=== PATIENT | female | born 1950 | race Caucasian/White ===

== ENCOUNTER → 2019-02-18 15:47 | Outpatient (CLI) | payer MEDICARE, OTHER, SELFPAY ==
--- NOTE | 2019-02-18 | DI.CT.S_ITS ---
PROCEDURE: CT UE LT WO CON INDICATIONS: PAIN IN LEFT SHOULDER TECHNIQUE: Noncontrast 1-1.5 mm thick sections acquired from the acromioclavicular joint to the inferior scapula, with coronal and sagittal reformatting. COMPARISON: None. FINDINGS: Image quality: Excellent. Bones: There is severe degenerative change at the glenohumeral joint where extensive subchondral cyst formation is resident and there is [id number] articulation across virtually the entirety of the articular surface. Prominent osteophytic spurring and bone thinning is present as a result. In contrast there is a mild to moderate degree of degenerative osteoarthritis at the acromioclavicular joint, but there is inferior tilt of the lateral acromion and the interspace beneath the acromium is thinned to the degree that chronic supraspinatus rotator cuff tear likely is present. Soft tissues: No joint effusion or intra-articular loose body is seen. Osteophytic spurring from the glenoid margins impinge on adjacent soft tissues along the undersurface of the glenoid rim. IMPRESSION: Very severe glenohumeral joint osteoarthritis, with extensive subchondral cyst formation, thinning of the glenoid from chronic degenerative change and [id number] articulation. The a.c. joint and contrast is only mildly degenerated. No acute trauma is found. Suspect full-thickness retracted supraspinatus rotator cuff tear given the relative thinning of the interspace between the upper margin of the humeral head and the undersurface of the acromion. Dictated by: Say Walsh M.D. on 02/18/2019 at 16:52 Approved by: Say Walsh M.D. on 02/18/2019 at 16:55
--- NOTE | 2019-02-18 | DI.MRI.S_ITS ---
PROCEDURE: MR SHOULDER LT WO CON INDICATIONS: PAIN IN LEFT SHOULDER TECHNIQUE: Noncontrast oblique coronal T2 fast spin echo with fat saturation, oblique sagittal T1 spin echo and T2 fast spin echo with fat saturation, axial T1 spin echo and T2 fast spin echo with fat saturation through the shoulder. COMPARISON: [facility], CT, CT UE LT WO CON, 02/18/2019, 16:25. FINDINGS: Image quality: Susceptibility artifact from prior shoulder surgery are seen.. Rotator cuff: There is tendinosis and low to moderate grade articular surface partial thickness tear involving distal supraspinatus and infraspinatus extending to musculotendinous junction. Tendinosis and moderate grade intrasubstance partial-thickness tear involving subscapularis is seen. No gross full-thickness rotator cuff tendon rupture. Sagittal images demonstrate moderate to severe subscapularis muscle atrophy and mild to moderate supraspinatus muscle atrophy. Bones and bursae: Severe glenohumeral joint osteoarthritis is seen with complete loss of joint space, extensive subchondral cyst formation and edema, and prominent marginal osteophyte formation. Mild acromioclavicular joint osteoarthritic changes are seen. No fracture or dislocation. No significant joint effusion. Capsule and soft tissues: In the absence of intra-articular contrast, there is global signal abnormality throughout labrum suggestive of extensive labral tear. The glenohumeral ligaments appear intact. Proximal intra-articular portion of long head biceps tendinosis is seen. The rotator interval appears normal, without fibrosis. The coracohumeral ligament is normal in thickness. IMPRESSION: 1. Prior surgery involving anterior aspect of shoulder with postsurgical changes. Tendinosis and moderate intrasubstance partial thickness involving distal subscapularis. Moderate to severe subscapularis muscle atrophy. 2. Tendinosis and low to moderate grade articular surface partial thickness tear involving distal supraspinatus and infraspinatus. Mild supraspinatus muscle atrophy. 3. Severe glenohumeral joint osteoarthritis and suggestion of diffuse left shoulder labral tear. Mild acromioclavicular joint osteoarthritis. 4. Tendinosis involving proximal intra-articular portion of long head of biceps. Dictated by: Oscar Woodruff M.D. on 02/19/2019 at 11:28 Approved by: Oscar Woodruff M.D. on 02/19/2019 at 11:45
== END ==
PROVIDERS: PCP Nurse Practitioner; Visit Provider Orthopaedic Surgery
DX: M25.512 Pain in left shoulder (principal); M19.012 Primary osteoarthritis, left shoulder; M62.512 Muscle wasting and atrophy, not elsewhere classified, left shoulder; M75.112 Incomplete rotator cuff tear or rupture of left shoulder, not specified as traumatic; M67.912 Unspecified disorder of synovium and tendon, left shoulder
CPT/HCPCS: 73200; 73221

== ENCOUNTER 2019-05-02 06:18 | Inpatient (IN) | payer MEDICARE, OTHER, SELFPAY ==
[2019-04-18 08:55] VITALS: BMI 23.7
[2019-05-02] VITALS (16 sets, daily range): BP systolic 97–142; BP diastolic 41–84; PULSE 61–76; RESP 11–18; TEMP 36.2–37.2; O2SAT 94–100; BMI 23.7; BMI 24.9
--- NOTE | 2019-05-02 06:00 | DI.RAD.S_ITS ---
PROCEDURE: XR SHOULDER LT MIN 2V INDICATIONS: post op TSA TECHNIQUE: 2 views of the shoulder were acquired. COMPARISON: None. FINDINGS: Bones: No fractures or dislocations. No suspicious bony lesions. Visualized ribs appear intact. Normal alignment is established immediately after left total shoulder arthroplasty. Soft tissues: No suspicious soft tissue calcifications. IMPRESSION: Normal alignment after shoulder arthroplasty on the left. Dictated by: Say Walsh M.D. on 05/02/2019 at 11:21 Approved by: Say Walsh M.D. on 05/02/2019 at 11:22
[2019-05-02] MEDS: ACETAMINOPHEN 325 MG TABLET 975 MG PO (06:56)
[2019-05-02] MEDS: PREGABALIN 75 MG CAPSULE PO (06:56)
[2019-05-02] MEDS: CELECOXIB 200 MG CAPSULE PO (06:56)
[2019-05-02] MEDS: LACTATED RINGERS 1,000 ML 42 ML IV (06:59)
[2019-05-02] MEDS: VANCOMYCIN 1,000 MG/200 ML PIGGYBACK 200 MG IV ×2 (07:00→19:13)
[2019-05-02] MEDS: MIDAZOLAM 2 MG/2 ML VIAL IV (07:39)
--- NOTE | 2019-05-02 07:45 | PM.PREOP ---
Pre-operative Note Interval Note History & Physical reviewed/Exam performed by Physician: Yes Changes to H&P: No
[2019-05-02] MEDS: GENTAMICIN 200 MG in SODIUM CHLORIDE 0.9% 100 ML 105 ML IV (08:01)
--- NOTE | 2019-05-02 08:08 | SUR.PREOP ---
Block start time [0739] . Monitoring initiated and maintained throughout procedure. Oxygen and medications given per anesthesiologist instructions. Patient remained stable throughout procedure, no adverse reactions noted. Block end time [0751].
--- NOTE | 2019-05-02 08:41 | P.PCN_ITS ---
Procedures Date/Time Date of procedure: 05/02/19 Time of procedure: 07:41 Nerve Block Time out performed: Yes Local anesthetic used: other (10mL 0.5opivacaine, 5mL 2* idocaine) Location of anesthetic used: interscalene Amount of anesthesia used (mL): 20 Nerve blocks: brachial plexus (interscalene) Procedure successful: Yes Patient tolerated procedure: well Complications: none Additional comments: LEFT Brachial plexus nerve block for post operative pain management. Risks and benefits discussed, including bleeding, infection, intravascular injection, nerve damage, block failure. Standard ASA monitors, NC O2. Pt supine. Chloroprep site preparation, sterile technique. Brachial plexus identified with US guidance, traced from supraclavicular to interscalene. 1mL 2% lidocaine skin wheal. 22g x 50mm Pajunk advanced with in-plane US guidance to brachial plexus. Negative aspiration. LA injected with intermittent negative aspiration. Good LA spread noted on US. No pain, no paraesthesia. Pt tolerated procedure well. Vital signs stable.
[2019-05-02] MEDS: LIDOCAINE 1% W/EPI INJ 20 ML INJ (08:48)
--- NOTE | 2019-05-02 08:50 | SUR.OPER ---
Beach chair with Kurtis/Haylie shoulder positioner. Lower body on padded OR bed. Head in foam padded head cradle, secured with straps. Non-operative arm secured <90 degrees abduction. Pillow under knees. Safety belt at thigh. Cloth tape over blanket over lower legs.
--- NOTE | 2019-05-02 10:11 | PM.OP.1 ---
Operative Date/Time/Diagnoses Date of procedure: 05/02/19 Time of procedure: 08:00 Pre-op diagnosis: Left end-stage glenohumeral joint arthritis Post-op diagnosis: same Procedure & Clinicians Procedure: Left total shoulder arthroplasty Same procedure as scheduled: Yes Indications: End-stage arthritic changes to the left shoulder with flattening of the humeral head and significant osteophyte formation around the glenoid as well as humeral head and neck. Surgeon: Rafael Dietrich Jewel Cupping Machine Operator: Rody Barahona Anesthesia Type: General and Peripheral nerve block Operative Notes Findings: Significant arthritic changes to the glenohumeral joint with flattening of the humeral head. Patient had large osteophytes coming off the humeral head and neck both anterior inferiorly and posteriorly. No sign of any rotator cuff tears. Some thinning of the supraspinatus but still an intact supraspinatus infraspinatus as well as subscapularis. Patient had large osteophytes involving the inferior aspect of the glenoid with a very large loose body at the glenoid neck. Significant osteophytes also to the anterior aspect of the glenoid. Closure Type: primary Specimen(s): none sent Applied: drain(s) and implant(s) Estimated Blood Loss (mL): 50 Blood products transfused: none Procedure in detail: On date of service, Patient was met in the holding area. The operative site was signed and witnessed by the OR staff. The surgeries once again discussed with the patient and any remaining questions they had were answered fully. Patient was taken back to the operating theater and placed on the operating table in a supine position. Great care was taken to ensure that all bony prominences were properly padded. Patient was then placed into the beach chair position. The head and neck were properly positioned and secured. A timeout was performed verifying patient's name, procedure, and the operative site. The upper extremity was then prepped and draped in the normal sterile fashion. Previously, the bony anatomy and incision were marked out as well as injected with Marcaine with epinephrine. A deltopectoral approach was performed. 10 blade was used to incise the skin and fascial tissue. A deep knife was used to continue sharp dissection until the cephalic vein was visualized. The cephalic vein was dissected free allowing us to expose the deltopectoral interval. This interval was then developed. A Lynne elevator was used to free up the deltoid of any scarring both superficially as well as deeply. The vein and the deltoid were taken laterally while the pectoralis was taken medially. This gave us good visualization of the strap muscles. The clavipectoral fascia was removed and the strap muscles were then retracted medially with the pectoralis. This gave us stabilization of the subscapularis. The circumflex vessels were ligated and the subscapularis was sharply excised off the lesser tuberosity and then tagged. Once the subscapularis was released we're able to dislocate the shoulder. Patient had end-stage arthritic changes to the humeral head as well as the glenoid with large osteophytes anterior inferiorly as well as posteriorly. A Ronger was then used to remove the osteophytes. Next, cutting guide was placed and a saw was used to remove the humeral head. Once the head was removed it was templated. A starting awl was then used to find the canal and then the humerus was reamed and broached. Trial stem was placed and a variety of heads were trialed. A protector placed for the osteotomy was then placed and and we turned our attention back to the subscapularis as well as the glenoid. The subscapularis was freed up and a 360? fashion. The degenerative anterior and inferior capsular tissue was removed. This was followed by removing the degenerative labral tissue from around the glenoid as well as the biceps insertion. This gave us good visualization of the glenoid. Glenoid trials were used until we found the appropriate fit and curvature. Next the center hole was drilled followed by reaming of the glenoid. The wound was copiously irrigated after reaming. Next the pegs were drilled and a trial glenoid was impacted into place. Once we were satisfied with the preparation of the glenoid, the final component was cemented into place. This was followed by impaction. We Return to our attention back to the humerus. The protector plate was removed and heads were trialed once again and so we found the appropriate fit. The trials were removed and bone tunnels were made into the humeral neck. #2 FiberWire were passed through the bone tunnels for eventual subscapularis repair. The final stem and head were impacted into place and the shoulder was reduced. It was taken through range of motion and was felt to be stable in both posterior translation as well as external and internal rotation with abduction. The subscapularis was repaired back to the lesser tuberosity through the bone tunnels. This was then reinforced with soft tissue repair. Part of the rotator interval was then closed. A drain was placed and the rest of the wound was closed in a layered fashion. The shoulder was then cleaned dried and dressed and the patient was taken to the PACU in stable condition. Patient will follow our postoperative protocol for total shoulder arthroplasty. Complications: none Condition: stable Disposition: Acute Care Plan for aftercare: Patient will be admitted overnight. Patient will be in a sling for 6 weeks. Patient will follow our postoperative protocol for total shoulder arthroplasty.
[2019-05-02] MEDS: LACTATED RINGERS 1,000 ML 125 ML IV ×2 (13:10→22:24)
--- NOTE | 2019-05-02 15:14 | PT.IIE ---
Current Diagnoses Primary osteoarthritis, left shoulder (05/02/19) Surgery Performed Operation Date: 05/02/19 07:45 Actual Procedures p Total Shoulder Arthroplasty(Left) - Rafael Dietrich MD Surgical History (Last Updated 04/18/19 @ 09:16 by Indu Louise RN) Hx of cholecystectomy (Acute) Hx of shoulder surgery (Acute) Hx of tonsillectomy (Acute) Medical History (Last Updated 04/18/19 @ 09:16 by Indu Louise RN) ADHD (Acute) Anxiety (Acute) DDD (degenerative disc disease) (Acute) Depression (Acute) Hx of ectopic (Acute) Leg laceration (Acute ~01/2019) Sciatica (Acute) Small intestinal bacterial overgrowth (Acute) Physical Therapy Inpatient Evaluation/Re-Eval M1 PT/OT-IP Prior Functional Status Start: 05/02/19 17:33 Freq: NEEDED Status: Active Protocol: Document 05/02/19 15:14 AB (Rec: 05/02/19 17:53 AB [id number]) Medical Review Prior Functional Status Medical History Reviewed Yes Communication able to make needs known Mobility and Gait pt stated that she is independent with all mobilities and ambulation without AD Social History Household Members none Living Arrangements House Number of Floors (Floors) One Floor Number of Stairs To Enter/Railing? pt plans to go to her Aunt's house and stated that her Aunt will assist her. pt plans to go back to her own home in a week where she lives by herself. information about home set up is regarding pt's aunt's house 2 steps without rails Home Environment Standard Height Toilet Additional Social History Comment pt stated that she does not know about toilet/bathroom set up. stated that she will not use the shower if it is not a walk-in shower. M2 PT-IP Current Condition Start: 05/02/19 17:33 Freq: NEEDED Status: Active Protocol: Document 05/02/19 15:14 AB (Rec: 05/02/19 17:53 AB [id number]) Physical Therapy Current Condition Current Condition Evaluation Date 05/02/19 Treatment Diagnosis s/p L TSA; difficulty in walking Onset Date 05/02/19 Precautions Shoulder Precautions Sling PROM Internal Rotation to Body No External Rotation No Abduction Forward Flexion to 90 degrees Pendulums Other Precautions BP Weight Bearing Status Weight Bearing Status Non-Weight Bearing Allowed Weight Bearing Amount (enter % NWB LUE or #) (%) M3 PT-IP Subjective Start: 05/02/19 17:33 Freq: NEEDED Status: Active Protocol: Document 05/02/19 15:14 AB (Rec: 05/02/19 17:53 AB [id number]) Subjective Physical Therapy Visit Type Type Initial Evaluation Visit Start Time 15:14 Visit Stop Time 15:37 Total Visit Minutes 23 Number of GRANTS ASSISTANT Visits 0 Physical Therapy Visit Comments Patient Comments pt agreed to get up and requested to use the toilet. Therapy Pain Assessment Pain Present Pain Present Denied Pain M4 PT-IP Mobility and Gait Start: 05/02/19 17:33 Freq: NEEDED Status: Active Protocol: Document 05/02/19 15:14 AB (Rec: 05/02/19 17:53 AB [id number]) PT-Bed Mobility Assessment Supine to Sit Supine to Sit Standby Assistance 1 Person Assistance Sit to Supine Sit to Supine Minimal Assistance 1 Person Assistance Scooting Scooting to Edge of Bed Minimal Assistance PT-Transfer Assessment Sit to and From Stand Sit to and from Stand Contact Guard Assistance Comments Mobility Comments BP supine: 97/50; pt completed supine to sit SBA. pt was able to sit on EOB SBA. pt readjusting self on EOB and stood up CGA for safety but instructed to sit back down. adjusted pt's arm sling. educated on elbow/hand ROM and precautions for L shoulder. c/o slight dizziness after a few minutes sitting up. BP 82 /53. instructed pt to lay back down in bed due to low BP . assisted pt with LE min A and cues. positioned pt in bed. call light and table placed within reach. BP in supine at end of PT session: 106/49 Gait Assessment Comments Gait Comments unable to assess due to decrease in BP PT-Balance Assessment Sitting Balance and Reactions Static Sitting Balance Ability Good Dynamic Sitting Balance Ability Good Standing Balance and Reactions Static Standing Balance Ability Fair Dynamic Standing Balance Ability Fair Device Used without AD M5 PT-IP Objective Assessments Start: 05/02/19 17:33 Freq: NEEDED Status: Active Protocol: Document 05/02/19 15:14 AB (Rec: 05/02/19 17:53 AB [id number]) Orientation Orientation/Cognition Level of Alertness Alert Orientation Name Age Birthday Place Situation Language Function Ability No Deficits Noted Safety Awareness Decreased Safety Awareness Gross Range of Motion Upper Extremity ROM Assessment Left Impaired Impairments LUE on a sling Lower Extremity ROM Assessment Within Functional Limits Strength Lower Extremity Strength Assessment Within Functional Limits Coordination Assessment Gross Coordination Gross Coordination WNL Sensation Assessment Sensation Gross Sensation Left UE Impaired Light Touch Absent Sensation Description Numbness Comments Sensation Comments pt still feels numb on LUE and has no motor control on LUE M6 PT-IP Treatment Start: 05/02/19 17:33 Freq: NEEDED Status: Active Protocol: Document 05/02/19 15:14 AB (Rec: 05/02/19 17:53 AB [id number]) Physical Therapy Treatment Exercises Exercises Elbow Flexion/Extension Wrist ROM Hand ROM Education Education Provided Precautions Weight Bearing Status Post-Op Packet Safety Brace Education [place] Patient Other Treatments Other Treatment Performed pt still feels numb on LUE and does not have any motor control. assist pt with sling management and completed PROM for elbow/wrist/ hand ROM. M7 PT-IP Assessment and Plan Start: 05/02/19 17:33 Freq: NEEDED Status: Active Protocol: Document 05/02/19 15:14 AB (Rec: 05/02/19 17:53 AB [id number]) PT Summary Assessment and Plan Potential Rehabilitation Potential Good Status of Condition at Evaluation Evolving Summary Impairments Pain ROM Strength Balance Coordination Sensation Tone Cognition Bed Mobility Transfers Gait Activity Tolerance Assessment Summary pt unable to tolerate much activity today with c/o dizzness with upright activity with decrease in BP. will need to assess further to determine safe pt d/c. pt is hoping to go to her aunt's house and her aunt will assist her at home. will continue to assess. Goals Bed Mobility Goal Standby Assistance Transfer Goal Standby Assistance Gait Goal Standby Assistance Gait Distance 200 Other Goals up/down 2 steps without rails Days to Meet Goals 5 Frequency of Treatment Frequency Of Treatment Twice a Day Treatment Plan Physical Therapy Treatment Plan Bed Mobility Training Transfer Training Gait Training Therapeutic Exercise Balance Retraining Post Op Education Discharge Planning Hot or Cold Pack Neuromuscular Re-ed Coordination Retraining Manual Therapy Other Recommendations and Next Treatment ambulation, caregiver training Focus , stair training Recommendations To Nursing Amount of Assist Needed 2 Person Assist Discharge Recommendations PT Discharge Recommendations Home with Assistance
[2019-05-02] MEDS: MAGNESIUM HYDROXIDE 30 ML UDC PO (20:57)
[2019-05-02] MEDS: DOCUSATE 100 MG CAPSULE PO (20:57)
[2019-05-02] MEDS: BUSPIRONE 15 MG TABLET 7.5 MG PO (20:57)
[2019-05-02] MEDS: HYDROCODONE/ACET 5/325 TABLET 2 TAB PO (21:34)
[2019-05-02] MEDS: ZOLPIDEM 5 MG TABLET PO (23:48)
[2019-05-03] VITALS (9 sets, daily range): BP systolic 94–129; BP diastolic 48–64; PULSE 53–73; RESP 14–17; TEMP 36.3–37.4; O2SAT 96–100
[2019-05-03] MEDS: HYDROCODONE/ACET 5/325 TABLET 2 TAB PO ×4 (01:55→21:11)
[2019-05-03 06:12] LABS: Hematocrit 28.3 % (36-46); Hemoglobin 9.7 g/dL (12.0-16.0); Mean Corpuscular HGB Conc 34.3 % (30-36); Mean Corpuscular Hemoglobin 30.3 PG (26-34); Mean Corpuscular Volume 88.2 fL (80-100); Platelet Count 231 X10^3/uL (150-400); Red Blood Cell Count 3.21 X10^6/uL (4.0-5.2); Red Cell Distribution Width 14.3 % (11.6-14.8); White Blood Cell Count 6.1 X10^3/uL (4.5-11.0)
--- NOTE | 2019-05-03 08:18 | PM.PNPO.1 ---
Subjective Date Patient Seen: 05/03/19 Time Patient Seen: 08:18 Interval history: Patient is POD#1 s/p left total shoulder arthroplasty with Dr. Dietrich. She reports some dizziness and light headedness with attempt to ambulate with PT yesterday that prevented her from completing the session. Hg 9.7 Hct 28.3 this morning. Pain was well controlled while block intact, she has had some issues since taking only [place]. Denies nausea or vomiting and has been tolerating a diet. Exam Vital Signs (past 8 hours): - 05/03/19 05:30 05/03/19 07:40 Temperature 98.4 F 97.4 F L Pulse Rate 65 53 L Respiratory Rate 16 14 Blood Pressure 125/53 L 94/48 L Pulse Oximetry 97 100 Oxygen Delivery Method Room Air Oxygen Flow Rate 0 Narrative Exam Narrative: Pleasant 68 year old female resting comfortably in the chair. Alert and oriented in no acute distress. Patient wearing sling. Dressing in place over left shoulder is CDI. Full ROM of the hand. Sensation intact to light touch. Brisk capillary refill. Objective Labs Result Diagrams: 05/03/19 05:55 Labs: Laboratory Results - last 24 hr 05/03/19 05:55 WBC 6.1 RBC 3.21 L Hgb 9.7 L Hct 28.3 L MCV 88.2 MCH 30.3 MCHC 34.3 RDW 14.3 Plt Count 231 Assessment & Plan Post-op Postoperative Procedures Operation Date: 05/02/19 07:45 Actual Procedures Side Surgeon p Total Shoulder Arthroplasty Left Rafael Dietrich MD Will give fluid bolus this morning due to symptomatic hypotension. Start Iron and Vitamin C for post operative anemia due to blood loss from surgery. Will switch to Oxycodone for better pain control. Work with PT/OT today. Possible discharge this afternoon if improvement in BP and cleared by PT otherwise anticipate discharge tomorrow. Quality VTE Deep Vein Thrombosis/Pulmonary Embolism Present on Admission: No
[2019-05-03] MEDS: SODIUM CHLORIDE 0.9% 500 ML 1000 ML IV (09:28)
[2019-05-03] MEDS: DOCUSATE 100 MG CAPSULE PO ×2 (09:29→20:27)
[2019-05-03] MEDS: OXYCODONE IR 5 MG TABLET PO ×2 (09:29→13:26)
[2019-05-03] MEDS: FERROUS SULFATE 325 MG TABLET PO ×2 (09:29→16:34)
[2019-05-03] MEDS: ESCITALOPRAM 10 MG TABLET PO (09:30)
[2019-05-03] MEDS: BUSPIRONE 15 MG TABLET 7.5 MG PO ×2 (09:30→20:27)
[2019-05-03] MEDS: buPROPion XL 150 MG TAB 300 MG PO (09:30)
[2019-05-03] MEDS: ASCORBIC ACID 500 MG TABLET PO ×2 (09:32→20:27)
[2019-05-03] MEDS: SODIUM CHLORIDE 0.9% FLUSH 10 ML IV ×2 (09:33→20:27)
--- NOTE | 2019-05-03 12:03 | PT.IPTN ---
Current Diagnoses Primary osteoarthritis, left shoulder (05/02/19) Presence of left artificial shoulder joint (05/02/19) Surgery Performed Operation Date: 05/02/19 07:45 Actual Procedures p Total Shoulder Arthroplasty(Left) - Rafael Dietrich MD Physical Therapy Treatment Note M2 PT-IP Current Condition Start: 05/02/19 17:33 Freq: NEEDED Status: Active Protocol: Document 05/02/19 15:14 AB (Rec: 05/02/19 17:53 AB [id number]) Physical Therapy Current Condition Current Condition Evaluation Date 05/02/19 Treatment Diagnosis s/p L TSA; difficulty in walking Onset Date 05/02/19 Precautions Shoulder Precautions Sling PROM Internal Rotation to Body No External Rotation No Abduction Forward Flexion to 90 degrees Pendulums Other Precautions BP Weight Bearing Status Weight Bearing Status Non-Weight Bearing Allowed Weight Bearing Amount (enter % NWB LUE or #) (%) M3 PT-IP Subjective Start: 05/02/19 17:33 Freq: NEEDED Status: Active Protocol: Document 05/03/19 11:57 GGD (Rec: 05/03/19 12:03 GGD [id number]) Subjective Physical Therapy Visit Type Type Treatment Note Visit Start Time 11:30 Visit Stop Time 11:53 Total Visit Minutes 23 Number of INDUSTRIAL GARAGE SERVICER Visits 1 Physical Therapy Visit Comments Patient Comments Pt states she is feeling better, but still a little dizzy. M4 PT-IP Mobility and Gait Start: 05/02/19 17:33 Freq: NEEDED Status: Active Protocol: Document 05/03/19 11:57 GGD (Rec: 05/03/19 12:03 GGD [id number]) PT-Transfer Assessment Sit to and From Stand Sit to and from Stand Contact Guard Assistance Equipment Transfer Assistive Device None Gait Belt Orthotic/Prosthetic Devices or Brace: Yes Transfers Transfer Destination Chair Gait Assessment Gait Gait Assistance Required: Standby Assistance Distance (Feet) 100 Able to Maintain Weight Bearing Status Yes During Gait Assistive Devices Assistive Device None Gait Belt Gait Deviations General Gait Pattern Decreased Stride Length Decreased Feet Clearance Factors Limiting Gait Function Factors Limiting Gait Function Pain Stair Climbing Assessment Evaluation Level of Assist On Stairs Standby Assistance Contact Guard Assistance Devices Stair Climbing Assistive Devices None Technique/Endurance Stair Climbing Direction Ascend and Descend Stair Climbing Technique Step to Step Number of Steps Climbed 3 Stair Climbing Set # Repetitions (reps) 2 Comments Stair Climbing Comments BP after activity 134/72 M5 PT-IP Objective Assessments Start: 05/02/19 17:33 Freq: NEEDED Status: Active Protocol: Document 05/02/19 15:14 AB (Rec: 05/02/19 17:53 AB [id number]) Orientation Orientation/Cognition Level of Alertness Alert Orientation Name Age Birthday Place Situation Language Function Ability No Deficits Noted Safety Awareness Decreased Safety Awareness Gross Range of Motion Upper Extremity ROM Assessment Left Impaired Impairments LUE on a sling Lower Extremity ROM Assessment Within Functional Limits Strength Lower Extremity Strength Assessment Within Functional Limits Coordination Assessment Gross Coordination Gross Coordination WNL Sensation Assessment Sensation Gross Sensation Left UE Impaired Light Touch Absent Sensation Description Numbness Comments Sensation Comments pt still feels numb on LUE and has no motor control on LUE M6 PT-IP Treatment Start: 05/02/19 17:33 Freq: NEEDED Status: Active Protocol: Document 05/03/19 11:57 GGD (Rec: 05/03/19 12:03 GGD [id number]) Physical Therapy Treatment Education Education Provided Precautions Safety M7 PT-IP Assessment and Plan Start: 05/02/19 17:33 Freq: NEEDED Status: Active Protocol: Document 05/03/19 11:57 GGD (Rec: 05/03/19 12:03 GGD [id number]) PT Summary Assessment and Plan Summary Assessment Summary Pt improved with mobility. She was safe with stair mobility and gait. Her BP was stable with activity. Pt safe to D/C home when medically stable. Frequency of Treatment Frequency Of Treatment Twice a Day Treatment Plan Physical Therapy Treatment Plan Bed Mobility Training Transfer Training Gait Training Therapeutic Exercise Balance Retraining Post Op Education Discharge Planning Hot or Cold Pack Neuromuscular Re-ed Coordination Retraining Manual Therapy Recommendations To Nursing Amount of Assist Needed Standby Assistance Discharge Recommendations PT Discharge Recommendations Home with Assistance
--- NOTE | 2019-05-03 13:03 | OT.IP.EVAL ---
Current Diagnoses Primary osteoarthritis, left shoulder (05/02/19) Presence of left artificial shoulder joint (05/02/19) Surgery Performed Operation Date: 05/02/19 07:45 Actual Procedures p Total Shoulder Arthroplasty(Left) - Rafael Dietrich MD Past Medical History (Last Updated 04/18/19 @ 09:16 by Indu Louise RN) ADHD (Acute) Anxiety (Acute) DDD (degenerative disc disease) (Acute) Depression (Acute) Hx of ectopic (Acute) Leg laceration (Acute ~01/2019) Sciatica (Acute) Small intestinal bacterial overgrowth (Acute) Surgical History (Last Updated 04/18/19 @ 09:16 by Indu Louise RN) Hx of cholecystectomy (Acute) Hx of shoulder surgery (Acute) Hx of tonsillectomy (Acute) Occupational Therapy Inpatient Evaluation/Re-Eval M1 PT/OT-IP Prior Functional Status Start: 05/03/19 12:25 Freq: NEEDED Status: Active Protocol: Document 05/03/19 12:26 [facility] (Rec: 05/03/19 13:03 [facility] [id number]) Medical Review Prior Functional Status Medical History Reviewed Yes Diet/Fluid Consistency Regular Thin Liquids Communication able to make needs known Mobility and Gait pt stated that she is independent with all mobilities and ambulation without AD Activities of Daily Living and IADL's Pt able to do all ADL and IADl needs, however due to limited AROM and pain limits pt from overhead reach and unable to wear certain clothing. Prior Functional Level (Other details) Pt has a 3 acre hobby farm with sheep. Social History Household Members none Living Arrangements House Number of Floors (Floors) One Floor Number of Stairs To Enter/Railing? pt plans to go to her Aunt's house and stated that her Aunt will assist her. Pt plans to go back to her own home in a week where she lives by herself. information about home set up is regarding pt's aunt's house 2 steps without rails Home Environment Standard Height Toilet Walk in Shower Home Equipment Tub Transfer Bench Additional Social History Comment Aunt states has walk in shower with bench and hand held shower spray. Pt's aunt lives in [place] and will go to [facility] to case picker shower chair and BSC for pt. M2 OT-IP Current Condition Start: 05/03/19 12:25 Freq: Status: Active Protocol: Document 05/03/19 12:26 [facility] (Rec: 05/03/19 13:03 [facility] [id number]) Occupational Therapy Current Condition Current Condition Evaluation Date 05/02/19 Treatment Diagnosis s/p left TSA, weakness Diagnosis Onset Date 05/03/19 Post Operative Precautions Shoulder Precautions Sling PROM Internal Rotation to Body No External Rotation No Abduction Forward Flexion to 90 degrees Pendulums Other Precautions Sling fro 6 weeks Weight Bearing Status Weight Bearing Status Non-Weight Bearing M3 OT- IP Subjective and Pain Start: 05/03/19 12:25 Freq: Status: Active Protocol: Document 05/03/19 12:26 [facility] (Rec: 05/03/19 13:03 [facility] [id number]) OT- Subjective Occupational Therapy Visit Type Type Initial Evaluation Visit Start Time 09:20 Visit Stop Time 10:33 Total Visit Minutes 73 Occupational Therapy Visit Comments Patient Comments Pt agreeable to get up. Pt feeling a little light headed when standing, nursing aware. Patient/Caregiver Goals To go to aunt's home when medically ready. OT Pain Assessment Pain When Pain Assessed At Rest Pain Present Pain Present Pain Reported Location Left Shoulder Intensity 3 Scale Used Numeric (1 - 10) M4 OT- IP ADL's Start: 05/03/19 12:25 Freq: Status: Active Protocol: Document 05/03/19 12:26 [facility] (Rec: 05/03/19 13:03 [facility] [id number]) OT GVW-Rifr-Pdihsrg General Evaluation Self-Feeding Ability Independent OT ADL-Grooming General Evaluation Grooming Ability Standby Assistance Areas Needing Assistance Retrieving/Set-up of Grooming Items Comments OT Grooming Comments Pt needing assist for set-up otherwise able to instrument worker front of the sink for grooming needs with CGA to close supervision. OT ADL-Oral Care General Eval Oral Care Ability Independent OT ADL-Dressing General Eval Upper Body Dressing Ability Maximum Assistance Areas Needing Assistance Orthosis/Prosthesis Comments OT Dressing Comments Pt initially needing MAX A for all sling management needs and able to help adjust sling properly. Able to educate pt to sherice/doff sling independently on her own, at times pt gets the straps turned around, however with increased time able to manage. OT ADL-Toileting General Evaluation Toileting Ability Standby Assistance Devices Toileting Assistive Devices Commode Comments OT Toileting Comments Set-up assist. Pt able to get on and off the standard toiletwith good safety. OT ADL-Bathing Comments OT Bathing Comments Pt not wanting to shower at this time. Emphasized best to sit for showering at this time and have assist. M5 OT- IP IADL's Start: 05/03/19 12:25 Freq: Status: Active Protocol: Document 05/03/19 12:26 [facility] (Rec: 05/03/19 13:03 [facility] [id number]) OT-Instrumental Activities of Daily Living Home Safety Awareness Awareness of Need for Assistance at Home Good Awareness Medication Management Medication Management No Deficits Identified Money Management Money Management No Deficits Identified Meal Preparation Meal Preparation Caregiver Provides Assist Timber Packer Timber Packer Caregiver Provides Assist M6 OT- IP Functional Cognition Start: 05/03/19 12:25 Freq: Status: Active Protocol: Document 05/03/19 12:26 [facility] (Rec: 05/03/19 13:03 [facility] [id number]) Cognitive Factors Limiting Selfcare Function Cognitive Ability Level of Alertness Alert Patient Orientation Name Age Birthday Month Date Year Day of Week Place Situation Attention Span Ability Capable of Focused Attention Capable of Sustained Attention Ability to Follow Commands Able to Follow Multi-Step Commands Memory Description No Deficits Noted Cognitive Comments Cognitive Assessment Comments Pt mainly just needing reminders not to actively move her left shoulder when trying to sherice sling and for pendulum exercises. OT- Vision and Hearing OT- Hearing Assessment OT- Hearing Assessment WFL OT- Vision Assessment Visual Acuity Glasses For Reading M7 OT- IP Mobility and Balance Start: 05/03/19 12:25 Freq: Status: Active Protocol: Document 05/03/19 12:26 [facility] (Rec: 05/03/19 13:03 [facility] [id number]) OT-Transfer Assessment Sit to and From Stand Sit to and from Stand Standby Assistance Transfers Transfer Ability Standby Assistance Contact Guard Assistance Technique Transfer Destination Bedside Commode Chair Toilet Transfer Technique Stand Step Pivot Devices Transfer Assistive Devices None Gait Belt OT- Gait Assessment Gait Gait Assistance Required: Standby Assistance Contact Guard Assist Comments Gait Ability Comments Initially pt a little unsteady on her feet and needing CGA for balance or use of counter to assist to walk and then close SBA. BP sitting 108/64 and standing 112/57. OT- Balance Assessment Sitting Balance and Reactions Static Sitting Balance Ability Normal Dynamic Sitting Balance Ability Good Standing Balance and Reactions Static Standing Balance Ability Good M8 OT- IP Objective Assessments Start: 05/03/19 12:25 Freq: Status: Active Protocol: Document 05/03/19 12:26 [facility] (Rec: 05/03/19 13:03 [facility] [id number]) OT Gross Range of Motion Upper Extremity Range of Motion Assessment Left Impaired OT Strength Upper Extremity Strength Assessment Left Impaired OT- Coordination Assessment Comments Coordination Comments Intact for coordination bilateral hands. OT-Muscle Tone Assessment Muscle Tone WNL Yes M9 OT- IP Assessment and Plan Start: 05/03/19 12:25 Freq: Status: Active Protocol: Document 05/03/19 12:26 [facility] (Rec: 05/03/19 13:03 [facility] [id number]) OT Summary Assessment and Plan Potential Rehabilitation Potential Good Analytic Complexity at Evaluation Low Summary OT Impairments Pain Range of Motion Balance Functional Mobility Dressing Bathing Shower Transfers Progress Towards Goals Progressing Toward Goals Assessment Summary Pt low complexity and main barrier is steps, and now needing assist for ADL needs. Pt to initial live with her aunt to assist with her needs especially for sling management , dressing , and showering needs. Pt having difficulty to relax her left shoulder during pendulums and at this time emphasized for her to dangle her left arm. Goals Grooming Goal Independent Dressing Goal Standby Assistance Toileting Goal Standby Assistance Bathing Goal Minimal Assistance Toilet Transfer Goal Standby Assistance Shower Transfer Goal Minimal Assistance Patient/Caregiver Education Goal Demonstrate Post-Op Precautions Caregiver Independent Assisting Patient Days to Meet Goals 1 Frequency of Treatment Frequency Of Treatment Once a Day Treatment Plan OT Treatment Plan ADL Training Functional Mobility Patient/Family Education Discharge Planning Other Treatment Recommendations and Next Shower, pendulums and dressing Treatment Focus Discharge Recommendations OT Discharge Recommendations Home with Assistance Outpatient PT Home Equipment Needs shower chair, BSC, HHSP
--- NOTE | 2019-05-03 14:21 | PC.NURSE ---
Ortho: Pain control issues this am, switched to oxycodone and pt reports her pain relief is better. Has eaten w/out problems and is voiding. Other concern was bp and feeling dizzy when up. First IV F bolus given Bp 110's systolic prior to bolus, hr is 78. After bolus bp up to 120's systolic and heart rate was 62. Initially feeling better and then felt dizzy again. Bp rechecked and systolic down to 110's again and a second bolus of IVF given. BP up to 130's sys and pt reported feeling better and less lightheaded. Did work w/PT/OT this am but they are coming back to see her this afternoon and see how she is doing when mobilizing. Pt over all feels much better this afternoon. Cont w/poc.
--- NOTE | 2019-05-03 16:00 | PT.IPTN ---
Current Diagnoses Primary osteoarthritis, left shoulder (05/02/19) Presence of left artificial shoulder joint (05/02/19) Surgery Performed Operation Date: 05/02/19 07:45 Actual Procedures p Total Shoulder Arthroplasty(Left) - Rafael Dietrich MD Physical Therapy Treatment Note M2 PT-IP Current Condition Start: 05/02/19 17:33 Freq: NEEDED Status: Active Protocol: Document 05/02/19 15:14 AB (Rec: 05/02/19 17:53 AB [id number]) Physical Therapy Current Condition Current Condition Evaluation Date 05/02/19 Treatment Diagnosis s/p L TSA; difficulty in walking Onset Date 05/02/19 Precautions Shoulder Precautions Sling PROM Internal Rotation to Body No External Rotation No Abduction Forward Flexion to 90 degrees Pendulums Other Precautions BP Weight Bearing Status Weight Bearing Status Non-Weight Bearing Allowed Weight Bearing Amount (enter % NWB LUE or #) (%) M3 PT-IP Subjective Start: 05/02/19 17:33 Freq: NEEDED Status: Active Protocol: Document 05/03/19 16:05 GGD (Rec: 05/03/19 16:13 GGD [id number]) Subjective Physical Therapy Visit Type Type Treatment Note Visit Start Time 15:30 Visit Stop Time 15:55 Total Visit Minutes 25 Number of TIE MILL OPERATOR Visits 2 Physical Therapy Visit Comments Patient Comments Pt states she is still a little dizzy. M4 PT-IP Mobility and Gait Start: 05/02/19 17:33 Freq: NEEDED Status: Active Protocol: Document 05/03/19 16:05 GGD (Rec: 05/03/19 16:13 GGD [id number]) PT-Bed Mobility Assessment Supine to Sit Supine to Sit Standby Assistance 1 Person Assistance Sit to Supine Sit to Supine Standby Assistance 1 Person Assistance Scooting Scooting to Edge of Bed Standby Assistance PT-Transfer Assessment Sit to and From Stand Sit to and from Stand Contact Guard Assistance Equipment Transfer Assistive Device None Gait Belt Orthotic/Prosthetic Devices or Brace: Yes Transfers Transfer Destination Bed Gait Assessment Gait Gait Assistance Required: Standby Assistance Distance (Feet) 220 Able to Maintain Weight Bearing Status Yes During Gait Assistive Devices Assistive Device None Gait Belt Gait Deviations General Gait Pattern Decreased Stride Length Decreased Feet Clearance Factors Limiting Gait Function Factors Limiting Gait Function Pain Stair Climbing Assessment Evaluation Level of Assist On Stairs Standby Assistance Contact Guard Assistance Devices Stair Climbing Assistive Devices None Technique/Endurance Stair Climbing Direction Ascend and Descend Stair Climbing Technique Step to Step Number of Steps Climbed 3 Stair Climbing Set # Repetitions (reps) 1 M5 PT-IP Objective Assessments Start: 05/02/19 17:33 Freq: NEEDED Status: Active Protocol: Document 05/02/19 15:14 AB (Rec: 05/02/19 17:53 AB [id number]) Orientation Orientation/Cognition Level of Alertness Alert Orientation Name Age Birthday Place Situation Language Function Ability No Deficits Noted Safety Awareness Decreased Safety Awareness Gross Range of Motion Upper Extremity ROM Assessment Left Impaired Impairments LUE on a sling Lower Extremity ROM Assessment Within Functional Limits Strength Lower Extremity Strength Assessment Within Functional Limits Coordination Assessment Gross Coordination Gross Coordination WNL Sensation Assessment Sensation Gross Sensation Left UE Impaired Light Touch Absent Sensation Description Numbness Comments Sensation Comments pt still feels numb on LUE and has no motor control on LUE M6 PT-IP Treatment Start: 05/02/19 17:33 Freq: NEEDED Status: Active Protocol: Document 05/03/19 16:05 GGD (Rec: 05/03/19 16:13 GGD [id number]) Physical Therapy Treatment Exercises Exercises Shoulder Pendulums Elbow Flexion/Extension Wrist ROM Hand ROM Education Education Provided Precautions Safety M7 PT-IP Assessment and Plan Start: 05/02/19 17:33 Freq: NEEDED Status: Active Protocol: Document 05/03/19 16:05 GGD (Rec: 05/03/19 16:13 GGD [id number]) PT Summary Assessment and Plan Summary Assessment Summary Pt able to progress gait. She improved with donning and doffing sling. She had no LOB during gait. Frequency of Treatment Frequency Of Treatment Twice a Day Treatment Plan Physical Therapy Treatment Plan Bed Mobility Training Transfer Training Gait Training Therapeutic Exercise Balance Retraining Post Op Education Discharge Planning Hot or Cold Pack Neuromuscular Re-ed Coordination Retraining Manual Therapy Recommendations To Nursing Amount of Assist Needed Standby Assistance Discharge Recommendations PT Discharge Recommendations Home with Assistance
[2019-05-03] MEDS: MAGNESIUM HYDROXIDE 30 ML UDC PO (20:27)
--- NOTE | 2019-05-03 21:22 | PC.NURSE ---
Pt is A and O x 4, VSS, BP WNL. Pain rated at 5-7/10 and found good relief with two [place], hoping to sleep this noc. SCDs off in the afternoon, but wearing them at hs. Pt is independent in room. Voiding well, +BTs.
[2019-05-03] MEDS: ZOLPIDEM 5 MG TABLET PO (23:19)
[2019-05-04] MEDS: HYDROCODONE/ACET 5/325 TABLET 2 TAB PO ×3 (05:48→13:56)
[2019-05-04 05:57] VITALS: BP 110/67; PULSE 57; RESP 16; TEMP 37.1; O2SAT 100
[2019-05-04 07:20] VITALS: BP 116/64; PULSE 60; RESP 17; TEMP 36.4; O2SAT 97
[2019-05-04] MEDS: SODIUM CHLORIDE 0.9% FLUSH 10 ML IV (07:25)
--- NOTE | 2019-05-04 07:33 | PC.NURSE ---
Addendum entered by June Bonner R.N. 05/04/19 14:15: Pt assisted in shower with COILER OPERATOR. Reviewed discharge summary packet with pt and her aunt Sultana. All questions answered, pt reminded to have a max dose of Acetaminophen from all sources of 4,000mg. Pt left unit with all belongings via wheelchair with COILER OPERATOR and her Aunt Sultana to drive her home. Pt left unit at 1415 in no distress. Addendum entered by June Bonner R.N. 05/04/19 11:52: Pt now sitting up in chair for lunch, no further voiced concerns, PRN [place] effective. pt given discharge summary packet to pre-read prior to reviewing with this RN. Plan for shower after lunch and her discharge ride will pick up and delivery driver around 1400. Original Note: Day Shift- Pt A&OX4, stated she slept better last night. Currently sitting in recliner chair at bedside, call light within reach. Reminded to use call light to assist to BR. Pt states feeling less symptomatic with ambulation compared to yesterday. Stated feeling only slight light-headedness with first ambulation this morning, denied dizziness. Rates 1-2/10 aching to left shoulder, pain controlled with PRN [place] and pt states she wants to continue with PRN [place] compared to Oxycodone. CMS+, Radial pulse moderate upon palpation. Denies numbness or tingling. Sling in place for support. Left shoulder aquacel dressing CDI. Old drain site covered with gaze and tegaderm dressing that has a small amount of sero-sang drainage. Pt states she will be staying at her Aunt's place in [place] upon discharge and she will be her ride upon discharge. Pt asking about discharge timing. Pt made aware needs to be seen by Surgical team and PT/OT prior to discharge. No other voiced concerns.
[2019-05-04] MEDS: FERROUS SULFATE 325 MG TABLET PO (07:46)
[2019-05-04] MEDS: ASCORBIC ACID 500 MG TABLET PO (07:46)
[2019-05-04] MEDS: DOCUSATE 100 MG CAPSULE PO (07:46)
[2019-05-04] MEDS: buPROPion XL 150 MG TAB 300 MG PO (07:47)
[2019-05-04] MEDS: BUSPIRONE 15 MG TABLET 7.5 MG PO (07:47)
[2019-05-04] MEDS: ESCITALOPRAM 10 MG TABLET PO (07:47)
--- NOTE | 2019-05-04 08:48 | CM.DANOTE ---
DCP/Assessment: Reviewed chart. Patient is a 68yr old female admitted to [facility] for left TSA performed on 05-[address] Dietrich. PCP listed is Noreen Wheat. Primary payor is 1)Medicare 2)[employer]. Met with patient explained CM/SW role. Patient reports that she plans to d/c home today. Patient reports no d/c planning needs. Patient staying with family in [place] and plans to do outpatient therapy. P: Home today. LUIZA Akins Discharge Planning/Care Management CM Discharge Assessment Start: 05/04/19 08:47 Freq: Status: Active Protocol: Document 05/04/19 08:47 KJS (Rec: 05/04/19 08:48 KJS [id number]) Discharge Planning Assessment Assigned Web Production Artist LUIZA Akins Advance Directives? Yes Advance Directives on File No History Provided By Patient Prior Living Arrangements House Household Members none Type of transporation used prior to Drives own vehicle admit Independent with ADL's Yes Is patient alert and oriented? Yes Caregiver for Another No Patient/Family Preference OP PT Therapy Whiteboard Updated in Patient Room with Yes name and ext. # of Web Production Artist Review Status In Process Pre-Anesthesia Assessment Start: 04/18/19 08:55 Freq: Status: Complete Protocol: Document 04/18/19 08:55 CAB (Rec: 04/18/19 09:33 CAB [id number]) Pre-Anesthesia Assessment PAC Comment Left calf laceration on , required 13 roger. Pt notes infection , has a call into PCP. I notified Priscilla/SNO Patient Information Reviewed Via Phone Assessment Assessment Completed With Patient Primary Care Provider Noreen Rodriguez Seen Specialist in Last 12 Months Yes Specialist Seen Orthopedist Primary Language Mosotho Care Manager Cna Required No Height 160.66 cm Weight 61.235 kg Body Mass Index (BMI) 23.7 Hearing Ability Normal Visual Assist Magnifying Glass Dentition Type Teeth, Natural Present Barriers to Learning None Other Aids No Hx Anesthesia Reactions No Hx Family Anesthesia Reaction No Hx Malignant Hyperthermia No Hx Blood Transfusions No Anesthesia Review Requested No alcohol intake current alcohol intake frequency a few times a month Smoking Status Never smoker Substance Use Type does not use Pain Present Pain Reported Musculoskeletal Symptoms Joint Pain Limited Range of Motion Radiating Pain into Limb History of Falling (Recent or History of No ) Patient is completely paralyzed or No completely immobile Mental Status Oriented to own ability Is patient on oxygen? No Does patient have BAKER/SOB No Hx Sleep Apnea No Currently Taking a Beta Jim No Can You Climb a Flight of Stairs Without Yes SOB Hx Chest Pain No Hx SOB No Hx Syncope or Dizziness No Anti-Coagulant Therapy No Has a Civil Engineering Professional No Cardiac Testing No Hx Pacemaker/ICD No Pacemaker Rep Required? No Cardiac Clearance Received Not Applicable Diet Type At Home Regular dysphagia No Comment Avoids certain carbs r/t SIBO Bladder Pattern Incontinent, Stress Urinary Catheter Present No Hx Urinary Self Catheterization No Diabetes No Patient No Lactating No Hx Drug Resistant Organism No Presence of External or Internal Medical No Devices Have you traveled outside the [facility] in the last 30 days? Marital Status Lives With none Prior Living Arrangements House Number of Floors (Floors) 3 or More Floors Support System Family Does the Patient Have Assistance After Yes Surgery Patient Discharge Plan Description Return Home Comment Will stay with Aunt at [place], children live locally Feels Safe in Current Environment Yes Been Physically Hurt or Threatened By a No Person in Current Environment Do you have thoughts of harming yourself None or others? Are you currently considering suicide? No Do you have a plan to hurt yourself or No Plan others? Do You Have Any Spiritual Beliefs That No May Affect Your HC Choices? Do You Have Any Cultural Practices That No May Affect Your HC Choices? Who Can We Speak to About Patient's Care Family, friends Identifying Code for Release of Patient Declines to issue Information Health Care Proxy/Next of Kin Yashira (friend) Esperanza (Aunt) Health Care Proxy Phone Number Yashira: [phone] [facility]: [phone] Emergency Contact Name Yashira (friend) Esperanza (Aunt) Emergency Contact Phone Number Yashira: [phone] Esperanza: [phone] Advance Directives? Yes: Pt is working on Advance Directives on File No Requested Patient Bring Advanced Yes Directives DOS PAC Instructions Do not shave/clip surgical site Durable medical equipment Medications to take/avoid Nasal antibiotic No ETOH/petroleum product on skin DOS NPO Post-op transportation Pre-surgical wash Sturdy shoes/comfortable clothes Do not bring valuables and remove jewelry
--- NOTE | 2019-05-04 09:15 | PT.IPTN ---
Current Diagnoses Primary osteoarthritis, left shoulder (05/02/19) Presence of left artificial shoulder joint (05/02/19) Surgery Performed Operation Date: 05/02/19 07:45 Actual Procedures p Total Shoulder Arthroplasty(Left) - Rafael Dietrich MD Physical Therapy Treatment Note M2 PT-IP Current Condition Start: 05/02/19 17:33 Freq: NEEDED Status: Active Protocol: Document 05/02/19 15:14 AB (Rec: 05/02/19 17:53 AB [id number]) Physical Therapy Current Condition Current Condition Evaluation Date 05/02/19 Treatment Diagnosis s/p L TSA; difficulty in walking Onset Date 05/02/19 Precautions Shoulder Precautions Sling PROM Internal Rotation to Body No External Rotation No Abduction Forward Flexion to 90 degrees Pendulums Other Precautions BP Weight Bearing Status Weight Bearing Status Non-Weight Bearing Allowed Weight Bearing Amount (enter % NWB LUE or #) (%) M3 PT-IP Subjective Start: 05/02/19 17:33 Freq: NEEDED Status: Active Protocol: Document 05/04/19 09:15 GGD (Rec: 05/04/19 12:00 GGD [id number]) Subjective Physical Therapy Visit Type Type Treatment Note Visit Start Time 08:50 Visit Stop Time 09:17 Total Visit Minutes 27 Number of GROUND CREWMAN Visits 3 Physical Therapy Visit Comments Patient Comments Pt states she feels stiff. M4 PT-IP Mobility and Gait Start: 05/02/19 17:33 Freq: NEEDED Status: Active Protocol: Document 05/04/19 09:15 GGD (Rec: 05/04/19 12:00 GGD [id number]) PT-Transfer Assessment Sit to and From Stand Sit to and from Stand Contact Guard Assistance Equipment Transfer Assistive Device None Gait Belt Orthotic/Prosthetic Devices or Brace: Yes Transfers Transfer Destination Chair Gait Assessment Gait Gait Assistance Required: Standby Assistance Distance (Feet) 220 Able to Maintain Weight Bearing Status Yes During Gait Assistive Devices Assistive Device None Gait Belt Gait Deviations General Gait Pattern Decreased Stride Length Decreased Feet Clearance Factors Limiting Gait Function Factors Limiting Gait Function Pain Stair Climbing Assessment Evaluation Level of Assist On Stairs Standby Assistance Devices Stair Climbing Assistive Devices None Technique/Endurance Stair Climbing Direction Ascend and Descend Stair Climbing Technique Step to Step Number of Steps Climbed 3 Stair Climbing Set # Repetitions (reps) 1 M5 PT-IP Objective Assessments Start: 05/02/19 17:33 Freq: NEEDED Status: Active Protocol: Document 05/02/19 15:14 AB (Rec: 05/02/19 17:53 AB [id number]) Orientation Orientation/Cognition Level of Alertness Alert Orientation Name Age Birthday Place Situation Language Function Ability No Deficits Noted Safety Awareness Decreased Safety Awareness Gross Range of Motion Upper Extremity ROM Assessment Left Impaired Impairments LUE on a sling Lower Extremity ROM Assessment Within Functional Limits Strength Lower Extremity Strength Assessment Within Functional Limits Coordination Assessment Gross Coordination Gross Coordination WNL Sensation Assessment Sensation Gross Sensation Left UE Impaired Light Touch Absent Sensation Description Numbness Comments Sensation Comments pt still feels numb on LUE and has no motor control on LUE M6 PT-IP Treatment Start: 05/02/19 17:33 Freq: NEEDED Status: Active Protocol: Document 05/04/19 09:15 GGD (Rec: 05/04/19 12:00 GGD [id number]) Physical Therapy Treatment Exercises Exercises Shoulder Pendulums Elbow Flexion/Extension Wrist ROM Hand ROM Education Education Provided Precautions Safety M7 PT-IP Assessment and Plan Start: 05/02/19 17:33 Freq: NEEDED Status: Active Protocol: Document 05/04/19 09:15 GGD (Rec: 05/04/19 12:00 GGD [id number]) PT Summary Assessment and Plan Summary Assessment Summary Pt improving with mobility. She had decrease pain with gait. She need cues for pendulums. Pt safe for home D/ C when medically stable. Frequency of Treatment Frequency Of Treatment Twice a Day Treatment Plan Physical Therapy Treatment Plan Bed Mobility Training Transfer Training Gait Training Therapeutic Exercise Balance Retraining Post Op Education Discharge Planning Hot or Cold Pack Neuromuscular Re-ed Coordination Retraining Manual Therapy Recommendations To Nursing Amount of Assist Needed Standby Assistance Discharge Recommendations PT Discharge Recommendations Home with Assistance
--- NOTE | 2019-05-04 09:31 | P.DS_ITS ---
History of Present Illness Date Patient Seen: 05/04/19 Time Patient Seen: 09:30 Chief complaint: [id number] Narrative: Please see HPI for previously recorded within the chart for this information. Discharge Providers Date of admission: 05/02/19 06:18 Discharge Date: 05/04/19 Primary care physician: ROGER Garcia Consults: 05/02/19 10:00 Consult to Discharge Planning Routine Comment: Consult to Physical Therapy Evaluate & Treat Comment: Physician Instructions: Evaluate and Treat Consult to Respiratory Therapy Evaluate & Treat Comment: Physician Instructions: Evaluate and treat 05/03/19 08:13 Consult to Occupational Therapy Evaluate & Treat Comment: L total shoulder Physician Instructions: Evaluate and treat Discharge provider: Britni Marquez PA-C Summary Discharge Diagnosis: s/p left total shoulder arthroplasty Hospital Course: Patient is a 68 year old female with end-stage arthritic changes to the left shoulder with flattening of the humeral head and significant osteophyte formation around the glenoid as well as humeral head and neck. After discussion of benefits and risks patient agreed to proceed and informed consent was obtained to proceed with left total shoulder arthroplasty. She was taken to the operating room and underwent the procedure with Dr. Dietrich on 05/02/19 which she tolerated well without complications. Afterwards she was taken to the acute care [facility] where she has been progressing well post operatively. POD #1 she was hypotensive with complaints of dizziness and lightheadedness which resolved after 1L bolus of NS. Her pain has been well controlled with [place] and she has worked with PT and OT. She will be staying with her aunt as post operative caregiver. She is tolerating a diet and voiding appropriately. She is medically stable for discharge to home at this time. Status at Discharge Cognitive/behavioral status at discharge: oriented Overall status at discharge: patient is progressing back to baseline Exam Vital Signs (past 8 hours): - 05/04/19 05:57 05/04/19 07:20 Temperature 98.8 F 97.5 F L Pulse Rate 57 L 60 Respiratory Rate 16 17 Blood Pressure 110/67 116/64 Pulse Oximetry 100 97 Oxygen Delivery Method Room Air Oxygen Flow Rate 0 Narrative Exam Narrative: 68 year old female, alert and oriented in no acute distress. Wearing sling LUE. Aquacel dressing is CDI. Intact motor in wrist and hand. SILT. Brisk capillary refill. Calves soft, compressible. Objective Labs Result Diagrams: 05/03/19 05:55 Discharge Plan Discharge Plan Patient Disposition: Home Discharge comment: Home this afternoon Discharge Med Rec/Prescriptions Prescriptions: New acetaminophen 325 mg Tablet 975 mg PO TID PRN (Reason: Headache) Qty: 60 RF: 0 ascorbic acid (vitamin C) [Vitamin C] 500 mg Tablet 500 mg PO BID Qty: 60 RF: 0 ferrous sulfate 325 mg (65 mg iron) Tablet 325 mg PO BIDWM Qty: 60 RF: 0 docusate sodium [DOK] 100 mg Capsule 100 mg PO BID Qty: 60 RF: 0 Shoulder sling/immobilizer Qty: 1 RF: 0 hydrocodone-acetaminophen 5-325 mg Tablet 2 tab PO Q4HR PRN (Reason: Pain, Moderate (4-6)) Qty: 60 RF: 0 Continued dextroamphetamine-amphetamine [Adderall] 20 mg Tablet 1 - 2 mg PO DAILY RF: 0 buspirone 7.5 mg Tablet 7.5 mg PO BID RF: 0 escitalopram oxalate 10 mg Tablet 10 mg PO DAILY RF: 0 bupropion HCl 150 mg Tablet Extended Release 24 Hr 300 mg PO QAM RF: 0 Follow up/Referrals: Noreen Wheat ARNP [Primary Care Provider] - Rafael Dietrich MD [Physician] - Provider Discharge Instructions Diet: Diet as Tolerated Activity: Patient is to remain in sling except for hygiene and pendulum exercises. Cold/Heat Therapy: Ice pack as needed. Skin/Wound/Dressing Care Report to your healthcare provider any signs of infection, such as:: chills, fever, night sweats, unusual drainage and unusual redness Dressing: Please leave dressing in place, it will be removed at 2 week post op check. Please call the office if dressing becomes saturated. Visit Report/Discharge Packet Instructions: How to Use a Sling, DI for Constipation, How to Prevent Falls, DI for Postoperative Pain, DI for Shoulder Replacement Discharge Data Primary Care Provider: Noreen Wheat Attending Provider: Rafael Dietrich Admit Date/Time: 05/02/19 06:18 Quality VTE Deep Vein Thrombosis/Pulmonary Embolism Present on Admission: No
[2019-05-04 11:00] VITALS: BP 119/57; PULSE 65; RESP 18; TEMP 37.1; O2SAT 98
[2019-05-04 11:16] VITALS: PULSE 60; RESP 18; O2SAT 97
== END 2019-05-04 14:15 | disposition home or self-care (01) | DRG 483 ==
PROVIDERS: Admitting Provider Orthopaedic Surgery; PCP Nurse Practitioner; Visit Provider Orthopaedic Surgery
PROC: 0RRK0JZ Replacement of Left Shoulder Joint with Synthetic Substitute, Open Approach (ICD-10-PCS; CPT 23472; principal; 2019-05-02 07:45)
DX: M19.012 Primary osteoarthritis, left shoulder (principal); D62 Acute posthemorrhagic anemia; I95.9 Hypotension, unspecified; F32.9 Major depressive disorder, single episode, unspecified; M25.712 Osteophyte, left shoulder
CPT/HCPCS: 36415; 64450; 73030; 85027; 94760; 97116; 97162; 97165; 97530; 97535; C1776; J1100; J2250; J2405; J2704; J3010

== ENCOUNTER 2019-10-10 12:51 | Day surgery (SDC) | payer MEDICARE, OTHER, SELFPAY ==
[2019-05-02 12:53] VITALS: BMI 24.9
[2019-10-01 13:52] VITALS: BMI 23.7
[2019-10-10] VITALS (10 sets, daily range): BP systolic 92–121; BP diastolic 32–65; PULSE 60–87; RESP 11–18; TEMP 36.6–36.9; O2SAT 94–100; BMI 24.9
--- NOTE | 2019-10-10 14:42 | PM.PREOP ---
Pre-operative Note Interval Note History & Physical reviewed/Exam performed by Physician: Yes Changes to H&P: No
[2019-10-10] MEDS: CEFAZOLIN 2 GM/100 ML FROZ.PIGGY IV (14:50)
[2019-10-10] MEDS: LACTATED RINGERS 1,000 ML 42 ML IV ×2 (15:10→15:58)
[2019-10-10] MEDS: LIDOCAINE 1% W/EPI 20 ML INJ (15:24)
--- NOTE | 2019-10-10 15:31 | SUR.OPER ---
Beach chair with Skytron shoulder positioner. Lower body on padded OR bed. Head in foam padded head cradle, secured with straps. Non-operative arm secured <90 degrees abduction. Pillow under knees. Safety belt at thigh. Cloth tape over blanket over lower legs. Gel pad under heels.
[2019-10-10] MEDS: BUPIVACAINE 0.5% W/ EPI (PF) 10 ML VIAL 20 ML INJ (15:42)
[2019-10-10] MEDS: methylPREDNISolone acet DEPO 40 MG/ML VIAL 80 MG INJ (15:43)
[2019-10-10] MEDS: SODIUM CHLORIDE IRRIG SOLUTION 3,000 ML, EPINEPHrine 1 MG IRR (15:44)
--- NOTE | 2019-10-10 16:27 | P.OP_ITS ---
Operative Date/Time/Diagnoses Date of procedure: 10/10/19 Time of procedure: 15:00 Pre-op diagnosis: Left shoulder stiffness status post total shoulder arthroplasty Post-op diagnosis: same Procedure & Clinicians Procedure: Manipulation under anesthesia with a arthroscopic lysis of adhesions extensive debridement and subacromial decompression Same procedure as scheduled: Yes Indications: Shoulder stiffness status post total shoulder arthroplasty Surgeon: Rafael Leigh Yes if Unassisted: Yes Anesthesia Type: General Operative Notes Findings: No sign of any loosening of the total shoulder implant. No sign of any rotator cuff tears. Patient had quite a bit of scarring and stiffness in the shoulder capsule. Synovitis and bursitis in the subacromial and subdeltoid space. Large impingement lesion coming off the acromial arch. Closure Type: primary Specimen(s): none sent Estimated Blood Loss (mL): 5 Blood products transfused: none Procedure in detail: On date of service, Patient was met in the holding area. The operative site was signed and witnessed by the OR staff. The surgeries once again discussed with the patient and any remaining questions they had were answered fully. Patient was taken back to the operating theater and placed on the operating table in a supine position. Great care was taken to ensure that all bony prominences were properly padded. Patient was then placed into the beach chair position. The head and neck were properly positioned and secured. A timeout was performed verifying patient's name, procedure, and the operative site. Preoperatively, patient only had about 80? of forward flexion and abduction. A manipulation under anesthesia was performed and we were able to bring her up to 120? of forward flexion and abduction. Patient had 30? of external rotation with the arm at the side closer to 45 with the arm abducted to 90?. This was not manipulated due to the previous subscapularis repair. Next, the upper extremity was then prepped and draped in the normal sterile fashion. Previously, the bony anatomy and portal sites were marked out as well as injected with Marcaine with epinephrine. An 11 blade was used to make an incision in the posterior aspect of the shoulder. The camera was placed, and a diagnostic shoulder scope was performed. Findings listed above. Next under direct visualization, a anterior portal was made. Camera was placed posteriorly shaver anteriorly and a debridement of the glenohumeral joint was performed removing thickened scarred capsular tissue. As well as opening up the rotator interval. No sign of any implant loosening or failure. Next the camera was placed into the subacromial space. A lateral portal was obtained under direct visualization. A combination of the shaver and vapor wand, a debridement of the inflamed tissue as well as inflamed bursa was performed. The lateral gutter was also cleaned out. This gave us good visualization of the bursal aspect of the rotator cuff as well as the acromial arch. There was an obvious impingement lesion in the acromial arch. Next we turned our attention to the subacromial decompression. Next, a mechanical rasp was then used to do a subacromial decompression. This allowed us to convert the acromion to a type I acromial. This also allowed us to shave down the bony lesion in the acromial space. The rasp was placed into the lateral portal as well as the anterior portal in order to do a complete sub acromial decompression. No sign of any significant tearing to the bursal side. There was some fraying of the cuff but no high-grade partial tears or full- thickness tears. Using the shaver and the vapor extensive debridement of the subacromial and subdeltoid space was performed removing any inflamed tissue or scarring. The range of motion was tested once again and then were able to get the patient to about 130-140 of forward flexion and abduction. It was decided at this point this was probably the best motion we are going to get an any additional debriding would be unnecessary. Patient's shoulder was clean, dry, and dressed. Patient was extubated and taken to the PACU in stable condition. Complications: none Post-operative Condition: stable Disposition: PACU Plan for aftercare: No restrictions to range of motion. Patient will begin aggr essive range of motion exercises starting tomorrow.
--- NOTE | 2019-10-10 16:48 | SUR.PHASEI ---
Dr Pimentel at bedside. Gave additional medication for c/o pain.
[2019-10-10] MEDS: KETOROLAC 30 MG/ML VIAL IV (16:57)
[2019-10-10] MEDS: OXYCODONE/ACETAMINOPHEN 5/325 TABLET 1 TAB PO (17:32)
== END 2019-10-10 18:21 | disposition home or self-care (01) ==
PROVIDERS: PCP Nurse Practitioner; Visit Provider Orthopaedic Surgery
PROC: (CPT 29805; principal; 2019-10-10 14:45)
DX: M75.02 Adhesive capsulitis of left shoulder (principal); M19.012 Primary osteoarthritis, left shoulder; M65.812 Other synovitis and tenosynovitis, left shoulder; M75.52 Bursitis of left shoulder; M25.812 Other specified joint disorders, left shoulder
CPT/HCPCS: 29825; 29826; J0171; J0330; J0690; J1030; J1100; J1170; J1885; J2405; J2704; J3010

== ENCOUNTER → 2021-11-04 16:31 | Outpatient (CLI) | payer MEDICARE, OTHER, SELFPAY ==
[2019-05-02 12:53] VITALS: BMI 24.9
--- NOTE | 2021-11-04 | DI.RAD.S_ITS ---
PROCEDURE: XR T AND L SPINE 4 TO 5 VIEWS INDICATIONS: SCOLIOSIS TECHNIQUE: 2 views acquired of the thoracolumbar spine. COMPARISON: None. FINDINGS: Bones: No acute fractures or dislocations. Visualized inferior ribs appear intact. No suspicious bony lesions. Mild dextrocurvature of the lower thoracic spine with maximal curvature of 8.0 disease and mild levoscoliosis centered at the L2 level with maximal Lynne angle 17.7?. Severe degenerative disc and facet disease in lumbar spine. Soft tissues: No suspicious soft tissue calcifications. IMPRESSION: Mild S-shaped scoliosis. Severe degenerative changes in lumbar spine. Dictated by: Stuart Yang [facility] Interpreted: Nneka Bliss MD on 11/04/2021 at 16:53 Transcribed by: NATE on 11/04/2021 at 16:54 Approved by: Nneka Bliss M.D. on 11/04/2021 at 20:41
== END ==
PROVIDERS: PCP Nurse Practitioner; Referring Provider Internal Medicine; Visit Provider Internal Medicine
DX: M41.86 Other forms of scoliosis, lumbar region (principal)
CPT/HCPCS: 72083

== ENCOUNTER → 2022-02-16 10:08 | Outpatient (CLI) | payer MEDICARE, OTHER, SELFPAY ==
[2019-05-02 12:53] VITALS: BMI 24.9
== END ==
PROVIDERS: PCP Internal Medicine; Referring Provider Orthopaedic Surgery; Visit Provider Orthopaedic Surgery
DX: Z01.818 Encounter for other preprocedural examination (principal)
CPT/HCPCS: 93005; 93010

== ENCOUNTER → 2022-02-28 17:19 | Outpatient (CLI) | payer MEDICARE, OTHER, SELFPAY ==
[2019-05-02 12:53] VITALS: BMI 24.9
[2022-02-28 19:51] LABS: COVID19 -Nasal RAPID Negative (Negative)
== END ==
PROVIDERS: PCP Internal Medicine; Referring Provider Orthopaedic Surgery; Visit Provider Orthopaedic Surgery
DX: Z20.822 Contact with and (suspected) exposure to COVID-19 (principal)
CPT/HCPCS: 87635; C9803

== ENCOUNTER 2022-03-02 07:40 | Observation (INO) | payer MEDICARE, OTHER, SELFPAY ==
[2019-05-02 12:53] VITALS: BMI 24.9
[2022-02-24 08:55] VITALS: BMI 23.9
[2022-03-01] VITALS (18 sets, daily range): BP systolic 88–135; BP diastolic 32–67; PULSE 52–68; RESP 12–17; TEMP 35.9–37; O2SAT 97–100; BMI 23.9
--- NOTE | 2022-03-01 | DI.RAD.S_ITS ---
PROCEDURE: XR HIP W PEL IF DONE LT 2V INDICATIONS: RT HIP SURGERY TECHNIQUE: Multiple intraoperative fluoroscopic views of the hip acquired. COMPARISON: None. FINDINGS: Bones: Multiple intraoperative fluoroscopic views demonstrate interval hip arthroplasty. IMPRESSION: Intraoperative views of a hip arthroplasty. Dictated by: Swapna Sorto M.D. on 03/01/2022 at 12:06 Approved by: Swapna Sorto M.D. on 03/01/2022 at 12:07
--- NOTE | 2022-03-01 07:21 | DI.RAD.S_ITS ---
PROCEDURE: XR HIP W PEL IF DONE LT 2V INDICATIONS: ANIA TECHNIQUE: 2 view(s) of the hip acquired. COMPARISON: [facility] [place], CR, XR PELVIS WITH BILATERAL LATERAL HIPS, 11/24/2021, 8:44. , CR, XR HIP W PEL IF DONE LT 2V, 03/01/2022, 9:22. FINDINGS: Bones: Patient is status post left hip arthroplasty, with hardware components in expected positions. The hip joint appears congruent. The visualized bony structures appear intact. Soft tissues: Overlying postoperative changes are noted. No suspicious soft tissue densities. IMPRESSION: Expected appearance of left total hip arthroplasty. Dictated by: Vidal Chu M.D. on 03/01/2022 at 11:17 Approved by: Vidal Chu M.D. on 03/01/2022 at 11:19
[2022-03-01] MEDS: VANCOMYCIN 1,000 MG/200 ML PIGGYBACK 200 MG IV (07:29)
[2022-03-01] MEDS: CELECOXIB 200 MG CAPSULE PO (07:29)
[2022-03-01] MEDS: ACETAMINOPHEN 325 MG TABLET 975 MG PO (07:29)
[2022-03-01] MEDS: LACTATED RINGERS 1,000 ML 42 ML IV ×2 (07:31→11:00)
--- NOTE | 2022-03-01 07:34 | PM.PREOP ---
Pre-operative Note COVID-19 COVID-19 status: Negative Interval Note History & Physical reviewed/Exam performed by Physician: Yes Changes to H&P: No
--- NOTE | 2022-03-01 07:35 | P.OP_ITS ---
Operative Date/Time/Diagnoses Date of procedure: 03/01/22 Time of procedure: 07:55 Pre-op diagnosis: left hip OA Post-op diagnosis: same Procedure & Clinicians Procedure: Left total hip arthroplasty anterior approach Same procedure as scheduled: Yes Indications: The patient has had progressively worsening left hip pain with radiographic martinez ges consistent with arthritis. Non-operative management has failed and the patient has requested total hip replacement. The risks, benefits and alternatives to surgery were discussed with the patient prior to proceeding. Risks discussed included, but were not limited to, failure to relieve pain, leg length discrepancy, dislocation, stiffness, infection, nerve damage, deep venous thrombosis, pulmonary embolism, stroke, coma, heart attack, permanent paralysis and , as well as the potential need for eventual revision of the prosthetic. Surgeon: Latrice Pardees [employer] [place] Manager: Luis Chavez Anesthesia Type: General and Spinal Operative Notes Findings: Severe left hip arthritis, adequate stability, soft bone Closure Type: primary Specimen(s): none sent Prosthetic devices, grafts, tissues, transplants, or devices: [employer] anthology standard offset size 3, 52 mm R3 cup, neutral poly liner, +0 36 mm Oxinium head, one 6.5 mm screw Estimated Blood Loss (mL): 250 Procedure in detail: The patient was brought to the operating room. Patient was carefully positioned in the supine position. Time-out was performed and antibiotics were given. Anesthesia was induced. She was positioned in the on the table in order to allow hyperextension of the hip. The left lower extremity was prepped and draped in a standard sterile fashion. An anterior left hip incision was made 1 fingerbreadth lateral to the anterior superior iliac spine and extended distally towards the greater trochanter. Dissection was carried out through skin and subcutaneous tissues. Superficial hemostasis was achieved. The fascia over the tensor fascia sonia was defined and incised with a knife. Two Allis clamps were used to grasp the fascia. Tensor fascia sonia was retracted laterally. A gelpi retractor was placed. Dissection was carried out down along the neck. The circumflex vessels were carefully identified and cauterized with the Aqua Mantis. There was good visualization of the femoral neck. A Cobra was placed superior to the neck and the gluteus fibers were carefully stripped from that superior aspect of the capsule. A 2nd retractor was placed along the inferior aspect of the neck. The rectus insertion along the capsule was partially released. A 3rd retractor that was then gently placed over the rim of the acetabulum under the rectus. Capsule was carefully incised and released from the intertrochanteric line circumferentially superior to the mid sagittal line and inferiorly to the mid sagittal line until the lesser trochanter was palpable. A tag stitch was placed both in the superior and inferior limb of the capsular insertion. Along the acetabulum capsule was also released up to the mid sagittal 12:00 position. A portion of the labrum was resected. A saw was used to perform an osteotomy at the level of the intertrochanteric line and the junction of the superior femoral neck leaving approximately 1 finger breath of residual inferior neck above the lesser trochanter. A 2nd cut was made along the femoral neck at the base of the head and a napkin ring of neck was removed. Corkscrew was placed in the femoral head and the head was removed without difficulty. Retractors were then repositioned around the acetabulum. Residual labrum was resected and additional osteophytes were removed. A reamer that was 4 mm below the templated size was placed by hand in the acetabulum and it was reamed to centralize the acetabulum. It was then reamed up to 2 under the templated size and fluoroscopy was brought in to confirm the position of the reaming and depth of reaming. I reamed 1 under the anticipated size and touched the rim with line to line reaming. A trial cup was placed and noted that it was appropriately sized and fluoroscopy confirmed position and depth. The component was open and inserted without difficulty fluoroscopic imaging was used to confirm that the cup had been adequately seated and was well positioned. It was further stabilized with a single screw. Neutral poly liner was placed. The cup was tested and noted to be stable. Attention was then directed to the femur. The femur was gently hyperextended additional capsular release was performed as needed in order to allow adequate visualization of the proximal femur with elevation of the femur. Patient was placed in a hyperextended slightly adducted position with maximum external rotation. Box osteotome was used to check for any residual neck as well as sclerotic bone along the trochanter. [place] pepper was placed in the femur. Additional broaching was performed. Canal finder was used to determine the alignment of the canal and position. Size 1 broach was placed. The canal was then appropriately broached up to the templated size as long as there was adequate stability of the broach and serial advancement of the broach without excessive impingement. Specific attention was directed at avoiding varus attempting to direct the distal aspect of the broach more anteriorly and avoiding excessive anteversion. Trial reduction showed acceptable range of motion, good stability, no posterior impingement, baptist of leg length and appropriate lateral shuck. I also hyperflexed the hip and checked that there was no impingement anteriorly and there was good stability with flexion, ad duction and internal rotation. Marcaine and Exparel were injected. The stem was placed without difficulty. Repeat trial reduction and x-ray showed acceptable overall position, length, and no evidence of the femoral fracture. Final head was placed. Wound was meticulously irrigated with normal saline. The hip was reduced and additional Exparel and Marcaine were injected. The capsule was closed with interrupted nonabsorbable sutures. The fascia of the tensor was closed with interrupted and running Vicryl. No drain was placed. Any tensor fascia sonia muscle that appeared to be contused or injured which was a minimal amount was carefully resected. Capsule around the tensor was injected with Exparel and Marcaine. The skin was closed with barbed stitches for the subcutaneous tissue and skin. We also used surgical glue. The wound was dressed sterilely. Brief Betadine soak was also used and was meticulously irrigated with normal saline. Patient was transferred to recovery room in satisfactory condition. Complications: none Post-operative Condition: critical Disposition: Acute Care Plan for aftercare: The patient will be maintained on a standard total hip replacement protocol with weight bearing as tolerated and anterior hip precautions. The patient will receive Aspirin and sequential compression devices for DVT prophylaxis. The patient will be discharged home when safe for the home environment.
[2022-03-01] MEDS: CEFAZOLIN 2 GM/20 ML SYRINGE IV ×2 (08:27→17:21)
--- NOTE | 2022-03-01 08:33 | SUR.OPER ---
Patient supine on padded [place] table, one arm on padded arm board at <90, other arm padded and secured with tape across patient's chest, both legs secured in padded traction boots and positioned per surgeon, padded post at patient's groin, pressure points checked and padded. Position approved by anesthesia and surgeon
[2022-03-01] MEDS: BUPIVACAINE 0.25% (PF) 60 ML, EPINEPHrine 0.3 MG INJ (09:12)
[2022-03-01] MEDS: BUPIVACAINE LIPOSOME 266 MG/20 ML VIAL INJ (09:12)
[2022-03-01] MEDS: TRANEXAMIC ACID 1,000 MG VIAL 2000 MG INJ (10:25)
[2022-03-01] MEDS: fentaNYL 100 MCG/2 ML INJ IV ×2 (10:52→11:52)
[2022-03-01] MEDS: ONDANSETRON 4 MG/2 ML INJ IV (10:54)
--- NOTE | 2022-03-01 12:29 | SUR.PHASEI ---
1215: Pt reports pain as tolerable, denies nausea, VSS, and ready to transfer to room .Report given to KIRTI RN using SBAR with time allowed for questions. Pt transferred to room 210 with all personal belongings by this typewriter assembler. Handoff to receiving RN.
[2022-03-01] MEDS: LACTATED RINGERS 1,000 ML 125 ML IV ×2 (13:50→23:03)
--- NOTE | 2022-03-01 13:53 | PC.NURSE ---
low BP BP 88/41. pt sitting upright, states lightheaded. IVF LR started at 125cc/hr and HOB flat. pt states improvement in symptoms within a few minutes. will continue to monitor BP.
[2022-03-01] MEDS: ACETAMINOPHEN 325 MG TABLET 650 MG PO ×2 (14:51→21:37)
--- NOTE | 2022-03-01 15:12 | PT.IIE ---
Current Diagnoses Unilateral primary osteoarthritis, unspecified hip (03/01/22) Surgery Performed Operation Date: 03/01/22 07:45 Actual Procedures p Total Hip Arthroplasty/Anterior Approach(Left) - Latrice Paredes MD Surgical History (Last Updated 02/24/22 @ 09:33 by Indu Louise, CITLALI) History of arthroplasty of left shoulder (05/02/19) History of orthopedic surgery (10/10/19) Hx of cholecystectomy Hx of shoulder surgery Hx of tonsillectomy Status post reverse total arthroplasty of left shoulder Medical History (Last Updated 10/01/19 @ 14:01 by Valery Hanna RN) ADHD Anxiety Arthritis Breast cancer DDD (degenerative disc disease) Depression Hx of ectopic Leg laceration (~01/2019) Osteoarthritis of left glenohumeral joint Sciatica Scoliosis Small intestinal bacterial overgrowth Physical Therapy Inpatient Evaluation/Re-Eval M1 PT/OT-IP Prior Functional Status Start: 03/01/22 15:11 Freq: NEEDED Status: Active Protocol: Document 03/01/22 15:12 DLM (Rec: 03/01/22 15:36 [facility] [id number]) Medical Review Prior Functional Status Medical History Reviewed Yes Diet/Fluid Consistency Regular Communication WNL Mobility and Gait Independent Activities of Daily Living and IADL's Independent Social History Household Members none Living Arrangements House Number of Floors (Floors) 3 or More Floors Number of Stairs To Enter/Railing? 2 steps to enter without rail Home Equipment Front Wheel Walker Employment Status Retired Additional Social History Comment She plans to go stay with her Aunt until Monday who lives in a one level house. After that she will go home with a friend staying with her for another week. Her house is 3-story with her bedroom on the main level with a bathroom. Her computer and TV are on other levels of the house. M2 PT-IP Current Condition Start: 03/01/22 15:11 Freq: NEEDED Status: Active Protocol: Document 03/01/22 15:12 DLM (Rec: 03/01/22 15:36 [facility] [id number]) Physical Therapy Current Condition Current Condition Evaluation Date 03/01/22 Treatment Diagnosis left anterior ANIA, impaired mobility and gait Onset Date 03/01/22 M3 PT-IP Subjective Start: 03/01/22 15:11 Freq: NEEDED Status: Active Protocol: Document 03/01/22 15:12 DLM (Rec: 03/01/22 15:36 DL [id number]) Subjective Physical Therapy Visit Type Type Initial Evaluation Visit Start Time 14:45 Visit Stop Time 15:12 Total Visit Minutes 27 Number of MACHINE TURNER Visits 0 Physical Therapy Visit Comments Patient Comments Be able to get up and move more. Patient Goals Discharge home with family help Therapy Pain Assessment Pain When Pain Assessed During Mobility Pain Present Pain Present Pain Reported Location Left Hip Intensity 4 Scale Used Numeric (0 - 10) Description Aching,Tightness,With Movement Pain Behaviors Facial Grimacing,Wincing Pain Management Techniques Apply Cold,Re-positioning M4 PT-IP Mobility and Gait Start: 03/01/22 15:11 Freq: NEEDED Status: Active Protocol: Document 03/01/22 15:12 DLM (Rec: 03/01/22 15:36 DL [id number]) PT-Bed Mobility Assessment Rolling Type of Rolling Roll to Right Level of Assist Independent Supine to Sit Supine to Sit Standby Assistance Sit to Supine Sit to Supine Standby Assistance,Bedrails Scooting Scooting to Edge of Bed Independent Scooting Up and Down in Bed Independent PT-Transfer Assessment Comments Mobility Comments She sat up on edge of bed only , she c/o light-headedness in sitting that did not resolve. In sitting her BP 111/35. Back in supine her BP 105/37. She c/o not feeling well. She is eager to get up and move more. Unable to advance mobility this visit due to low BP and light-headedness. PT-Balance Assessment Sitting Balance and Reactions Static Sitting Balance Ability Normal Dynamic Sitting Balance Ability Normal M5 PT-IP Objective Assessments Start: 03/01/22 15:11 Freq: NEEDED Status: Active Protocol: Document 03/01/22 15:12 DLM (Rec: 03/01/22 15:36 DL [id number]) Orientation Orientation/Cognition Level of Alertness Alert Orientation Name,Age,Birthday,Month,Date, Year,Day of Week,Place, Situation Language Function Ability No Deficits Noted Safety Awareness Understands Safety Issues Memory Description No Deficits Noted Gross Range of Motion Upper Extremity ROM Assessment Within Functional Limits Impairments hx left total shoulder Lower Extremity ROM Assessment Left Impaired Impairments post-op pain and anterior precautions left hip Strength Upper Extremity Strength Assessment Within Functional Limits Shoulder hx left total shoulder Lower Extremity Strength Assessment Left Impaired Hip pain with left hip active movements Coordination Assessment Gross Coordination Gross Coordination WNL Sensation Assessment Sensation Gross Sensation WNL Muscle Tone Muscle Tone WNL Yes M6 PT-IP Treatment Start: 03/01/22 15:11 Freq: NEEDED Status: Active Protocol: Document 03/01/22 15:12 DLM (Rec: 03/01/22 15:36 DLM [id number]) Physical Therapy Treatment Exercises Exercises Ankle Pumps,Gluteal Sets,Quad Sets,Heel Slides Education Education Provided Post-Op Packet,Safety Other Treatments Other Treatment Performed only performed 3 reps of left heel slide due to reports of pain. M7 PT-IP Assessment and Plan Start: 03/01/22 15:11 Freq: NEEDED Status: Active Protocol: Document 03/01/22 15:12 DLM (Rec: 03/01/22 15:36 DLM [id number]) PT Summary Assessment and Plan Potential Rehabilitation Potential Good Status of Condition at Evaluation Evolving Summary Impairments Pain,ROM,Strength,Balance,Bed Mobility,Transfers,Gait, Activity Tolerance Assessment Summary Lauren is restless lying in bed and eager to move more. She reports she got light- headed getting up with nursing with low BP. Pt was able to sit on edge of bed this visit but got light-headed immediately that did not resolve with BP 111/35. She returned to supine to manage her light-headedness. Reviewed her discharge packet and performed her exercises. She demonstrates good functional strength for mobility but her low BP and light-headedness prevent progression of her activity at this time. Will work towards her goal of discharge to her Aunt's one story house with her Aunt to assist her. Will continue to assess for discharge planning as she becomes more medically stable. She is not safe to discharge today. Goals Bed Mobility Goal Independent Transfer Goal Independent,Front Wheeled Walker Gait Goal Independent,Front Wheel Walker Gait Distance 150 feet Other Goals up and down 2 steps with cane and CG/min assist to enter her house Days to Meet Goals 2 Frequency of Treatment Frequency Of Treatment Twice a Day Treatment Plan Physical Therapy Treatment Plan Bed Mobility Training,Transfer Training,Gait Training, Therapeutic Exercise,Balance Retraining,Post Op Education, Discharge Planning,Hot or Cold Pack,Neuromuscular Re-ed Precautions Anterior Hip Precautions No Hip Extension,No Hip External Rotation Weight Bearing Status Weight Bearing Status Weight Bear as Tolerated Recommendations To Nursing Amount of Assist Needed Standby Assistance Discharge Recommendations PT Discharge Recommendations Home with Assistance Other Discharge Recommendations she plans to stay with her Aunt at discharge Transportation Needs at Discharge Private Vehicle
[2022-03-01] MEDS: OXYCODONE IR 5 MG TABLET PO ×3 (17:28→21:38)
[2022-03-01] MEDS: DOCUSATE 100 MG CAPSULE PO (20:07)
[2022-03-01] MEDS: ASPIRIN EC 81 MG TABLET PO (20:07)
[2022-03-01] MEDS: BUSPIRONE 5 MG TABLET 15 MG PO (20:07)
[2022-03-01] MEDS: HYDROMORPHONE 0.5 MG INJ 0.2 MG IV (21:39)
[2022-03-01] MEDS: OXYCODONE IR 10 MG TABLET PO (23:03)
[2022-03-02 00:13] VITALS: BP 105/47; PULSE 73; RESP 17; TEMP 37.2; O2SAT 97
[2022-03-02] MEDS: CEFAZOLIN 2 GM/20 ML SYRINGE IV (01:01)
[2022-03-02] MEDS: OXYCODONE IR 5 MG TABLET PO ×2 (02:19→10:14)
[2022-03-02] MEDS: ACETAMINOPHEN 325 MG TABLET 650 MG PO ×3 (05:46→23:44)
[2022-03-02 06:37] LABS: Hematocrit 27.5 % (36-46); Hemoglobin 9.4 g/dL (12.0-16.0)
--- NOTE | 2022-03-02 07:24 | PM.PNPO.1 ---
Subjective Subjective Date Patient Seen: 03/02/22 Time Patient Seen: 07:24 Interval history: Patient's pain is mild. Denies fever/ chills. No nausea/ vomiting. No chest pain or shortness of breath. Patient states when she gets up to use the bathroom she gets very lightheaded and dizzy. Patient lives in a 3 story home so she will be staying with her 86-year-old aunt for the next couple days until she is able to return to her on home. Exam Vital Signs (past 8 hours): - 03/02/22 00:13 Temperature 98.9 F Pulse Rate 73 Respiratory Rate 17 Blood Pressure 105/47 L Pulse Oximetry 97 Oxygen Delivery Method Room Air Oxygen Flow Rate 0 Narrative Exam Narrative: 71-year-old female resting comfortably in bed in no apparent distress. Left hip dressing is Clean, dry, intact.. Motor functions intact distal bilateral lower extremities. Motor functions intact bilateral lower extremities. Const General: cooperative Resp Effort & Inspection: normal respiratory effort and able to speak in complete sentences Objective Labs Result Diagrams: 03/02/22 06:03 Labs: Laboratory Results - last 24 hr 03/02/22 06:03 Hgb 9.4 L Hct 27.5 L PFSH Medical History ADHD Anxiety Arthritis Breast cancer DDD (degenerative disc disease) Depression Hx of ectopic Leg laceration (~01/2019) Osteoarthritis of left glenohumeral joint Sciatica Scoliosis Small intestinal bacterial overgrowth Surgical History History of arthroplasty of left shoulder (05/02/19) History of orthopedic surgery (10/10/19) Hx of cholecystectomy Hx of shoulder surgery Hx of tonsillectomy Status post reverse total arthroplasty of left shoulder Social History household members: none Smoking Status: Never smoker alcohol intake: current Assessment & Plan Post-op Postoperative Procedures: Procedures Operation Date: 03/01/22 07:45 Actual Procedure Side Surgeon p Total Hip Arthroplasty/Anterior Approach Left Latrice Paredes MD Postoperative day: 1 Postoperative status: doing well Postoperative status narrative: Patient progressing as expected status post left total hip arthroplasty, anterior approach. Patient is a little hypotensive and has been dizzy when she gets up out of bed. Postoperative plan: routine post-op care Postoperative plan narrative: Mobilize with physical therapy, anterior hip precautions Multimodal pain management Disposition likely later today or tomorrow once blood pressure normalizes and dizziness resolves.
[2022-03-02] MEDS: LACTATED RINGERS 1,000 ML 125 ML IV (07:26)
--- NOTE | 2022-03-02 07:32 | PM.PNPO.1 ---
Subjective Subjective Date Patient Seen: 03/02/22 Time Patient Seen: 07:32 Interval history: Pt sitting in bed, complaining of pain more severe than she was expecting. She does say it has improved throughout the night. She complains of inability to flex at the hip due to painful spasm. Having episodes of hypotension and dizziness when sitting upright and standing. Eating and voiding without difficulty. She lives in a 3 story house, but her plan is to go to her aunt's single-story house in [place] until Monday, at which time friends from [place] will pick her up and stay at her home with her. Exam Vital Signs (past 8 hours): - 03/02/22 00:13 Temperature 98.9 F Pulse Rate 73 Respiratory Rate 17 Blood Pressure 105/47 L Pulse Oximetry 97 Oxygen Delivery Method Room Air Oxygen Flow Rate 0 Narrative Exam Narrative: 5/5 strength in DF, PF on left; 3/5 hip flexors on left. Calves soft, compressible, nontender and without palpable cords or masses. Aquacel dressing CDI. Objective Labs Result Diagrams: 03/02/22 06:03 Labs: Laboratory Results - last 24 hr 03/02/22 06:03 Hgb 9.4 L Hct 27.5 L PFSH Medical History ADHD Anxiety Arthritis Breast cancer DDD (degenerative disc disease) Depression Hx of ectopic Leg laceration (~01/2019) Osteoarthritis of left glenohumeral joint Sciatica Scoliosis Small intestinal bacterial overgrowth Surgical History History of arthroplasty of left shoulder (05/02/19) History of orthopedic surgery (10/10/19) Hx of cholecystectomy Hx of shoulder surgery Hx of tonsillectomy Status post reverse total arthroplasty of left shoulder Social History household members: none Smoking Status: Never smoker alcohol intake: current Assessment & Plan Post-op Assessment and plan (1) S/P total hip arthroplasty: Assessment and Plan narrative: PT today. Will add diazepam for help with pain control. Continue ASA BID and SCDs for VTE prophylaxis. Plan to discharge tomorrow if pain well-controlled, H/H and BP stable. (2) Acute postoperative anemia due to expected blood loss: Assessment and Plan narrative: Continue IVF. Transfusion not indicated at this time; recheck H/H in am. Postoperative Procedures: Procedures Operation Date: 03/01/22 07:45 Actual Procedure Side Surgeon p Total Hip Arthroplasty/Anterior Approach Left Latrice Paredes MD Postoperative day: 1
[2022-03-02 08:00] VITALS: BP 98/49; PULSE 69; RESP 16; TEMP 37.2; O2SAT 100
[2022-03-02] MEDS: ASPIRIN EC 81 MG TABLET PO ×2 (10:15→21:06)
[2022-03-02] MEDS: BUSPIRONE 5 MG TABLET 15 MG PO ×2 (10:15→21:06)
[2022-03-02] MEDS: DOCUSATE 100 MG CAPSULE PO ×2 (10:15→21:06)
--- NOTE | 2022-03-02 10:53 | PT.IPTN ---
Current Diagnoses Acute posthemorrhagic anemia (03/01/22) Unilateral primary osteoarthritis, unspecified hip (03/01/22) Presence of unspecified artificial hip joint (03/01/22) Surgery Performed Operation Date: 03/01/22 07:45 Actual Procedures p Total Hip Arthroplasty/Anterior Approach(Left) - Latrice Paredes MD Physical Therapy Treatment Note M2 PT-IP Current Condition Start: 03/01/22 15:11 Freq: NEEDED Status: Active Protocol: Document 03/01/22 15:12 DLM (Rec: 03/01/22 15:36 DLM [id number]) Physical Therapy Current Condition Current Condition Evaluation Date 03/01/22 Treatment Diagnosis left anterior ANIA, impaired mobility and gait Onset Date 03/01/22 M3 PT-IP Subjective Start: 03/01/22 15:11 Freq: NEEDED Status: Active Protocol: Document 03/02/22 10:56 KS (Rec: 03/02/22 12:24 KS [id number]) Subjective Physical Therapy Visit Type Type Treatment Note Visit Start Time 10:26 Visit Stop Time 10:53 Total Visit Minutes 27 Notes Pts BP Sup: 132/61 Sittin/65 Standin/73 After mobility sittin/32 Sup: 131/41 Number of WEB INTERFACE DEVELOPER Visits 1 Therapy Pain Assessment Location Left Hip Intensity 6 Scale Used Numeric (0 - 10) Description Aching,Tightness,With Movement Pain Behaviors Facial Grimacing,Wincing Pain Management Techniques Apply Cold,Distraction, Modification of Treatment,Re- positioning,Timing of Activity with Medications M4 PT-IP Mobility and Gait Start: 03/01/22 15:11 Freq: NEEDED Status: Active Protocol: Document 03/02/22 10:56 KS (Rec: 03/02/22 12:24 KS [id number]) PT-Bed Mobility Assessment Supine to Sit Supine to Sit Moderate Assistance,1 Person Assistance,Head of Bed Elevated Sit to Supine Sit to Supine Contact Guard Assistance Scooting Scooting to Edge of Bed Independent PT-Transfer Assessment Sit to and From Stand Sit to and from Stand Contact Guard Assistance,1 Person Assistance,Use of Upper Extremities Equipment Transfer Assistive Device Gait Belt,Front Wheeled Walker Transfers Transfer Destination Bed Transfer Technique Pt ambulated Transfer Ability Level of Assist Contact Guard Assistance, Minimal Assistance,1 Person Assistance,Use of Upper Extremities Comments Mobility Comments Pt in bed upon arrival and agreeable to ambulation. Still receiving fluids but approved by RN to mobilize. BP: 132/61 supine. Mod A for sup<>sit, BP: 123/65, denied symptoms. Pt sit<>stand w/ FWW CGA and cues for hand placement. BP after 2 min standin/73, pt denied any symptoms. She then ambulated ~50 ft in room w/ FWW and BP was 126/53 w/ pt reporting some light headedness. Pt able to get herself back into bed CGA, BP was then 108/32 and pt lightheaded and then 131/41 in supine. Pt left in bed w/ all needs in reach. Gait Assessment Gait Gait Assistance Required: Contact Guard Assist,1 Person Assist Distance (Feet) 50 Assistive Devices Assistive Device Gait Belt,Front Wheeled Walker Gait Deviations General Gait Pattern Antalgic,Decreased Stride Length,Decreased Feet Clearance,Step-to Gait Factors Limiting Gait Function Factors Limiting Gait Function Decreased Activity Tolerance, Decreased Strength,Limited Range of Motion,Pain,Poor Balance Comments Gait Comments Pt ambulated ~50 ft w/ FWW w/ step to gait. C/o 6/10 pain ambulating. Stair Climbing Assessment Comments Stair Climbing Comments Not yet assessed. Pt still w/ low BP. PT-Balance Assessment Sitting Balance and Reactions Static Sitting Balance Ability Normal Dynamic Sitting Balance Ability Normal M5 PT-IP Objective Assessments Start: 03/01/22 15:11 Freq: NEEDED Status: Active Protocol: Document 03/01/22 15:12 DLM (Rec: 03/01/22 15:36 DLM [id number]) Orientation Orientation/Cognition Level of Alertness Alert Orientation Name,Age,Birthday,Month,Date, Year,Day of Week,Place, Situation Language Function Ability No Deficits Noted Safety Awareness Understands Safety Issues Memory Description No Deficits Noted Gross Range of Motion Upper Extremity ROM Assessment Within Functional Limits Impairments hx left total shoulder Lower Extremity ROM Assessment Left Impaired Impairments post-op pain and anterior precautions left hip Strength Upper Extremity Strength Assessment Within Functional Limits Shoulder hx left total shoulder Lower Extremity Strength Assessment Left Impaired Hip pain with left hip active movements Coordination Assessment Gross Coordination Gross Coordination WNL Sensation Assessment Sensation Gross Sensation WNL Muscle Tone Muscle Tone WNL Yes M6 PT-IP Treatment Start: 03/01/22 15:11 Freq: NEEDED Status: Active Protocol: Document 03/02/22 10:56 KS (Rec: 03/02/22 12:24 KS [id number]) Physical Therapy Treatment Education Education Provided Post-Op Packet,Safety M7 PT-IP Assessment and Plan Start: 03/01/22 15:11 Freq: NEEDED Status: Active Protocol: Document 03/02/22 10:56 KS (Rec: 03/02/22 12:24 KS [id number]) PT Summary Assessment and Plan Potential Rehabilitation Potential Good Status of Condition at Evaluation Evolving Summary Impairments Pain,ROM,Strength,Balance,Bed Mobility,Transfers,Gait, Activity Tolerance Assessment Summary Pt able to ambulate today, however still became hypotensive following mobility w/ BP 108/32. She required Mod A for sup<>sit primarily due to high level of pain, but was able to tolerate 50 ft ambulation. Will continue to progress as able. Pt still receiving fluids at this time. If she goes to stay with her aunt she will need to improve bed mobility and complete 2 steps w/ SPC. Goals Bed Mobility Goal Independent Transfer Goal Independent,Front Wheeled Walker Gait Goal Independent,Front Wheel Walker Gait Distance 150 feet Other Goals up and down 2 steps with cane and CG/min assist to enter her house Days to Meet Goals 2 Frequency of Treatment Frequency Of Treatment Twice a Day Treatment Plan Physical Therapy Treatment Plan Bed Mobility Training,Transfer Training,Gait Training, Therapeutic Exercise,Balance Retraining,Post Op Education, Discharge Planning,Hot or Cold Pack,Neuromuscular Re-ed Precautions Anterior Hip Precautions No Hip Extension,No Hip External Rotation Weight Bearing Status Weight Bearing Status Weight Bear as Tolerated Recommendations To Nursing Amount of Assist Needed Standby Assistance Discharge Recommendations PT Discharge Recommendations Home with Assistance Other Discharge Recommendations she plans to stay with her Aunt at discharge Transportation Needs at Discharge Private Vehicle
--- NOTE | 2022-03-02 11:31 | CM.DANOTE ---
DCP Note: Payor: Medicare PCP: MD Sangita Pt is a 71 y.o. F who was admitted for left ANIA. Pt has a history of breast cancer, depression, anemia, and arthritis. Pt to work with PT and continue with pain management control. Pt has had some hypotension so further observation for one more night is warranted per MD. DCP met with pt bedside this morning. Pt sitting up in bed with her Aunt, Fifi, at her side. Pt states that she currently lives in [place] in a three story house but she is planning to go to her aunt's house following discharge until monday and then transition back to her house where her friend is coming to stay with her for a week. Pt states that she still drives and has also set up paratransit in case she needs it. Pt states that she is fairly independent at baseline and continues to do her ADL's. Pt states that she does not use any assisted walking devices. Pt states that she is well taken care of following discharge and declines any needs such as HH. Whiteboard updated with DCP contact info. Instructed to call with any other questions. P: Once MD determines pt is medically stable for discharge, pt to d/c home to Aunts house via aunt POV. Joycelyn Mead RN/MONICA Discharge Planning/Care Management CM Discharge Assessment Start: 03/02/22 11:28 Freq: Status: Active Protocol: Document 03/02/22 11:29 AJ (Rec: 03/02/22 11:30 [id number]) Discharge Planning Assessment Assigned Search Manager Joycelyn Mead RN/MONICA Advance Directives? Yes Advance Directives on File No History Provided By Patient Prior Living Arrangements House Household Members none Type of transporation used prior to Drives own vehicle admit Comment Also applied to do paratransit Independent with ADL's Yes Is patient alert and oriented? Yes Caregiver for Another No Patient/Family Preference OP PT Therapy Barriers to Discharge No Referrals Initiated None needed Additional Comment At this time Whiteboard Updated in Patient Room with Yes name and ext. # of Search Manager Comment Instructed to call if any needs arise or questions Review Status In Process Please Provide Date Initial DC 03/02/22 Assessment Was Performed Next Review Type Continued Stay Review Pre-Anesthesia Assessment Start: 02/24/22 08:55 Freq: Status: Active Protocol: Document 02/24/22 08:55 CAB (Rec: 02/24/22 09:52 [facility] [id number]) Pre-Anesthesia Assessment PAC Comment Unable to reach pt for scheduled PAC phone assessment . Chart review only Patient Information Reviewed Via Chart Review Diagnostic Results BMP/CMP,CBC Comment Outside labs scanned, COVID screen not identified Primary Care Provider Arabella Quesada Seen Specialist in Last 12 Months Yes Specialist Seen Orthopedist Primary Language Beninese Preferred Language Beninese Lockstitch Machine Operator Required No Height 160.02 cm Weight 61.235 kg Body Mass Index (BMI) 23.9 Hearing Ability Normal Visual Assist Magnifying Glass Dentition Type Teeth, Natural Present Barriers to Learning None Other Aids No Hx Anesthesia Reactions No Hx Family Anesthesia Reaction No Hx Malignant Hyperthermia No Hx Blood Transfusions No Hx Blood Transfusion Reaction No Anesthesia Review Requested Yes: PAC courtesy re: Abnormal pre-op ECG Sound Engineer Audio Control No alcohol intake current alcohol intake frequency a few times a month Smoking Status Never smoker Substance Use Type does not use Pain Present Pain Reported History of Falling (Recent or History of No ) Patient is completely paralyzed or No completely immobile Mental Status Oriented to own ability Is patient on oxygen? No Does patient have BAKER/SOB No Hx Sleep Apnea No CPAP/BIPAP use not prescribed Currently Taking a Beta Jim No Can You Climb a Flight of Stairs Without Yes SOB Hx Chest Pain No Hx SOB No Hx Syncope or Dizziness No Anti-Coagulant Therapy No Has a Embossing Press Operator Molded Goods No Cardiac Testing No Hx Pacemaker/ICD No Pacemaker Rep Required? No Cardiac Clearance Received Not Applicable Diet Type At Home Regular dysphagia No: Avoids certain carbs r/t SIBO Urinary Catheter Present No Hx Urinary Self Catheterization No Diabetes No HgbA1C 5.7 Date 02/07/22 Patient No Lactating No Hx Drug Resistant Organism No Presence of External or Internal Medical No Devices Marital Status Lives With none Prior Living Arrangements House Number of Floors (Floors) 3 or More Floors Patient Discharge Plan Description Return Home Feels Safe in Current Environment Yes Been Physically Hurt or Threatened By a No Person in Current Environment Do you have thoughts of harming yourself None or others? Are you currently considering suicide? No Do you have a plan to hurt yourself or No Plan others? Do You Have Any Spiritual Beliefs That No May Affect Your HC Choices? Do You Have Any Cultural Practices That No May Affect Your HC Choices? Who Can We Speak to About Patient's Care Family, friends Identifying Code for Release of Patient Declines to issue previously Information Health Care Proxy/Next of Kin Yashira (friend) Esperanza (Aunt), Vianey (Aunt) Health Care Proxy Phone Number Yashira: [phone] Esperanza: [phone], Sierraty: [phone] Emergency Contact Name Yashira (friend) Esperanza (Aunt), Vianey (Aunt) Emergency Contact Phone Number Yashira: [phone] Esperanza: [phone], Sierragretel: Advance Directives? Yes Advance Directives on File No Power of Char Conveyor Tender Cellar Yes Power of Char Conveyor Tender Cellar Name Yashira Avila (friend) Power of Char Conveyor Tender Cellar
--- NOTE | 2022-03-02 14:08 | PT-IP ANOTE ---
Attempted to see pt at 14:08, pt very tearful and c/o high pain after recent mobilization. Refusing PT this PM.
[2022-03-02] MEDS: OXYCODONE IR 10 MG TABLET PO ×2 (14:12→21:06)
--- NOTE | 2022-03-02 17:21 | PC.NURSE ---
Pt satifactory post op course. med x 2 for discomfort,. 10mg oxycodone worked well. Sat in chair for short time. Dsg to left ant hip CDI Call light w\in reach, pt calls appropriately for needs. Continue w/plan of care.
[2022-03-02 20:00] VITALS: BP 121/52; PULSE 71; RESP 16; TEMP 37.3; O2SAT 99
[2022-03-02] MEDS: SODIUM CHLORIDE 0.9% FLUSH 10 ML IV (23:50)
[2022-03-03] VITALS: BP 101/51; PULSE 71; RESP 18; TEMP 37.2; O2SAT 100
[2022-03-03 04:30] VITALS: BP 125/51; PULSE 67; RESP 17; TEMP 37.1; O2SAT 99
[2022-03-03] MEDS: ACETAMINOPHEN 325 MG TABLET 650 MG PO ×2 (06:07→11:39)
[2022-03-03 07:19] LABS: Hematocrit 26.7 % (36-46)
--- NOTE | 2022-03-03 07:44 | PM.DS.1 ---
History of Present Illness History of Present Illness Chief complaint: LT ANIA 03/01 Narrative: Patient's pain this morning is significantly improved compared to yesterday. Dizziness/lightheadedness has resolved. No fever chills. No nausea vomiting. She does have assistance at home. Discharge Providers Provider Date of admission: 03/02/22 07:40 Discharge Date: 03/03/22 Primary care physician: Arabella Quesada MD Consults: 02/24/22 09:52 Consult to Anesthesiology Routine Comment: Consulting Provider: Anesthesiologist Reason for consultation: PAC courtesy re: Abnormal pre-op ECG 03/01/22 07:21 Consult to Anesthesiology Routine Comment: Consulting Provider: Anesthesiologist Reason for consultation: Regional block for post operative pain control 03/01/22 13:12 Consult to Discharge Planning Routine Comment: Consult to Physical Therapy Evaluate & Treat Comment: Physician Instructions: post op ANIA protocol Consult to Respiratory Therapy Evaluate & Treat Comment: Physician Instructions: Evaluate and treat Discharge provider: Luis Chavez PA-C Summary Hospital Course Discharge Diagnosis: Left hip osteoarthritis Hospital Course: Left total hip arthroplasty anterior approach Same procedure as scheduled: Yes Indications: The patient has had progressively worsening left hip pain with radiographic changes consistent with arthritis. Non-operative management has failed and the patient has requested total hip replacement. The risks, benefits and alternatives to surgery were discussed with the patient prior to proceeding. Risks discussed included, but were not limited to, failure to relieve pain, leg length discrepancy, dislocation, stiffness, infection, nerve damage, deep venous thrombosis, pulmonary embolism, stroke, coma, heart attack, permanent paralysis and , as well as the potential need for eventual revision of the prosthetic. Surgeon: Latrice Paredes Open Shank Coverer: Luis Chavez Anesthesia Type: General and Spinal Operative Notes Findings: Severe left hip arthritis, adequate stability, soft bone Closure Type: primary Specimen(s): none sent Prosthetic devices, grafts, tissues, transplants, or devices: Paredes and Nephew anthology standard offset size 3, 52 mm R3 cup, neutral poly liner, +0 36 mm Oxinium head, one 6.5 mm screw Estimated Blood Loss (mL): 250 Patient admitted to the hospital for left total hip arthroplasty, anterior approach on March 01, 2022. Patient consented for left total hip arthroplasty. Patient taken to the operating room. Patient back in her room recovering is in stable condition. Patient had hypotension yesterday. It she was only able to work with physical therapy once due to increased pain and lightheadedness. Pain is significantly improved today. Lightheadedness is resolved. She will mobilize with physical therapy this morning and be discharged home if safe for home environment. Exam Vital Signs (past 8 hours): - 03/03/22 00:00 03/03/22 04:30 Temperature 99.0 F 98.7 F Pulse Rate 71 67 Respiratory Rate 18 17 Blood Pressure 101/51 L 125/51 L Pulse Oximetry 100 99 Oxygen Flow Rate 0 0 Oxygen Delivery Method Room Air Oxygen Flow Rate 0 Narrative Exam Narrative: Pleasant 71-year-old female sitting in bedside chair in no apparent distress. Left hip dressing is Clean, dry, intact.. Motor functions intact bilateral lower extremities. Sensation grossly intact to light touch bilateral lower extremities. Const General: cooperative and comfortable Nutritional Appearance: average body habitus and well nourished Objective Labs Result Diagrams: 03/03/22 06:49 Labs: Laboratory Results - last 24 hr 03/03/22 06:49 Hgb 9.0 L Hct 26.7 L PFSH Medical History ADHD Anxiety Arthritis Breast cancer DDD (degenerative disc disease) Depression Hx of ectopic Leg laceration (~01/2019) Osteoarthritis of left glenohumeral joint Sciatica Scoliosis Small intestinal bacterial overgrowth Surgical History History of arthroplasty of left shoulder (05/02/19) History of orthopedic surgery (10/10/19) Hx of cholecystectomy Hx of shoulder surgery Hx of tonsillectomy Status post reverse total arthroplasty of left shoulder Social History household members: none Smoking Status: Never smoker alcohol intake: current Discharge Assessment & Plan Assessment and Plan Assessment: Patient progressing as expected status post left total hip arthroplasty, anterior approach March 01, 2022 Plan of Treatment: Mobilize with physical therapy, anterior hip precautions Aspirin for DVT prophylaxis multimodal pain management Discharge home today in stable condition Discharge Plan Discharge Plan Patient Disposition: Home Discharge orders & Medications Prescriptions: New acetaminophen 325 mg Tablet 650 mg PO Q6HR Qty: 60 0RF aspirin 81 mg Tablet,Delayed Release (Dr/Ec) 81 mg PO BID Qty: 60 0RF docusate sodium 100 mg Capsule 100 mg PO BID Qty: 20 0RF oxycodone 10 mg Tablet 10 mg PO Q3HR PRN (Reason: Pain, Severe (7-10)) Qty: 60 0RF Continued dextroamphetamine-amphetamine [Adderall] 20 mg Tablet 40 mg PO DAILY buspirone 7.5 mg Tablet 15 mg PO BID Adult Multivitamin Gummies 200 mcg Tablet,Chewable 200 tab PO DAILY Iron Plus Vitamin C 15 mg tablet 15 PO DAILY Rx Instructions: pt states taking 15 iron with 500 vit c calcium carbonate-vitamin D2 600 mg calcium- 200 unit Tablet PO Discontinued acetaminophen 325 mg Tablet 975 mg PO TID PRN (Reason: Headache) Qty: 60 0RF oxycodone-acetaminophen [Percocet] 5-325 mg tablet 2 tab PO Q4-6H PRN (Reason: pain) Qty: 60 0RF Follow up/Referrals: Arabella Quesada MD [Primary Care Provider] - Latrice Paredes MD [Physician] - As previously scheduled (Follow up with Dr Paredes on 03/16/2022 @ 1300 at [facility] in [place].) Diet/Activity/Treatments Diet: Diet as Tolerated Activity: Weight bearing as tolerated to left leg. Anterior hip precautions. Cold/Heat Therapy: Ice as needed to hip for pain. Skin/Wound/Dressing Care Report to your healthcare provider any signs of infection, such as:: chills, fever, night sweats, unusual drainage and unusual redness Dressing: May shower. Leave Aquacel dressing in place until follow up in office. Visit Report/Discharge Packet Instructions: DI for Hip Replacement, DI for Prescription Opioid Use Stand Alone Forms: Surgery Discharge Discharge Data Primary Care Provider: Arabella Quesada Attending Provider: Latrice Paredes
[2022-03-03 08:02] VITALS: BP 94/58; PULSE 68; RESP 18; TEMP 36.8; O2SAT 98
--- NOTE | 2022-03-03 09:13 | CM.DPC ---
DCP Cont: Per MD, pt is stable for discharge home today. Pt to have home assistance. Pt to follow up with Dr. Paredes on 03/16. No needs identified for this pt as pt has home assistance with Aunt and friend. P: Pt to discharge home today to aunts house via aunt POV. Pt to transition to her own home on Monday with friend coming to stay with her. Joycelyn Mead RN/DCP
[2022-03-03] MEDS: DOCUSATE 100 MG CAPSULE PO (09:20)
[2022-03-03] MEDS: BUSPIRONE 5 MG TABLET 15 MG PO (09:20)
[2022-03-03] MEDS: ASPIRIN EC 81 MG TABLET PO (09:20)
[2022-03-03] MEDS: SODIUM CHLORIDE 0.9% FLUSH 10 ML IV (09:21)
[2022-03-03 09:25] VITALS: BP 117/57; PULSE 70
--- NOTE | 2022-03-03 11:28 | PT.IPTN ---
Current Diagnoses Acute posthemorrhagic anemia (03/02/22) Unilateral primary osteoarthritis, unspecified hip (03/02/22) Presence of unspecified artificial hip joint (03/02/22) Surgery Performed Operation Date: 03/01/22 07:45 Actual Procedures p Total Hip Arthroplasty/Anterior Approach(Left) - Latrice Paredes MD Physical Therapy Treatment Note M2 PT-IP Current Condition Start: 03/01/22 15:11 Freq: NEEDED Status: Active Protocol: Document 03/01/22 15:12 DLM (Rec: 03/01/22 15:36 DLM [id number]) Physical Therapy Current Condition Current Condition Evaluation Date 03/01/22 Treatment Diagnosis left anterior ANIA, impaired mobility and gait Onset Date 03/01/22 M3 PT-IP Subjective Start: 03/01/22 15:11 Freq: NEEDED Status: Active Protocol: Document 03/03/22 11:28 NBM (Rec: 03/03/22 13:34 NB [id number]) Subjective Physical Therapy Visit Type Type Treatment Note Visit Start Time 10:45 Visit Stop Time 11:28 Total Visit Minutes 43 Notes Pts BP Sup: 90/46 Sittin/37 Standing 2 min: 103/56 After mobility supine: 119/50 Number of CARE TRANSPORT NURSE Visits 2 Physical Therapy Visit Comments Patient Goals Discharge home with family help Therapy Pain Assessment Pain When Pain Assessed During Mobility Pain Present Pain Present Pain Reported Location Left Hip Intensity 6 Scale Used Numeric (0 - 10) Description Aching,Tightness,With Movement Pain Behaviors Wincing Pain Management Techniques Apply Cold,Distraction, Modification of Treatment,Re- positioning,Timing of Activity with Medications M4 PT-IP Mobility and Gait Start: 03/01/22 15:11 Freq: NEEDED Status: Active Protocol: Document 03/03/22 11:28 NBM (Rec: 03/03/22 13:34 [facility] [id number]) PT-Bed Mobility Assessment Rolling Level of Assist Independent Supine to Sit Supine to Sit Contact Guard Assistance, Minimal Assistance Sit to Supine Sit to Supine Contact Guard Assistance Scooting Scooting to Edge of Bed Independent Scooting Up and Down in Bed Independent PT-Transfer Assessment Sit to and From Stand Sit to and from Stand Contact Guard Assistance,1 Person Assistance,Use of Upper Extremities Equipment Transfer Assistive Device Gait Belt,Front Wheeled Walker Transfers Transfer Destination Bed Transfer Technique Pt ambulated Transfer Ability Level of Assist Contact Guard Assistance, Minimal Assistance,1 Person Assistance,Use of Upper Extremities Comments Mobility Comments Pt in bed upon arrival and agreeable to ambulation. BP: 90/46 supine. CGA for sup<>sit , BP: 109/37, lightheadness reported initially then resolved after ~ 1 min. Pt sit <>stand w/ FWW CGA w/ no cues for hand placement. BP after 2 min standin/56, pt denied any symptoms. She then ambulated ~80 ft w/ FWW and ~ 8 ft w/ SPC, CGA w/ no increase in baseline pain or symptoms. PT performd 3 steps x 3 up/down w/ SPC no railsand improved understanding of appropriate use of SPC. Pt returned to room via w/c due to fatigue and use FWW Step Pivot transfer to bed independently- BP was then 119 /50 supine. Pain after treatment reported at 5-02/18. Pt left in bed w/ all needs in reach. Gait Assessment Gait Gait Assistance Required: Contact Guard Assist,1 Person Assist Distance (Feet) 88 Assistive Devices Assistive Device Gait Belt,Front Wheeled Walker Gait Deviations General Gait Pattern Antalgic,Decreased Stride Length,Decreased Feet Clearance,Step-to Gait Factors Limiting Gait Function Factors Limiting Gait Function Decreased Activity Tolerance, Decreased Strength,Limited Range of Motion,Pain,Poor Balance Comments Gait Comments Pt ambulated ~80 ft w/ FWW w/ step to gait and ~8 ft w/ SPC. C/o 6/10 pain ambulating. Stair Climbing Assessment Evaluation Level of Assist On Stairs Independent Devices Stair Climbing Assistive Devices Straight Cane Technique/Endurance Stair Climbing Direction Ascend and Descend Stair Climbing Technique Step Over Step Number of Steps Climbed 3 Stair Climbing Set # Repetitions (reps) 3 Comments Stair Climbing Comments Pt able to ascend/descend steps w/ SPC safely. PT-Balance Assessment Sitting Balance and Reactions Static Sitting Balance Ability Normal Dynamic Sitting Balance Ability Normal M5 PT-IP Objective Assessments Start: 03/01/22 15:11 Freq: NEEDED Status: Active Protocol: Document 03/01/22 15:12 [facility] (Rec: 03/01/22 15:36 DL [id number]) Orientation Orientation/Cognition Level of Alertness Alert Orientation Name,Age,Birthday,Month,Date, Year,Day of Week,Place, Situation Language Function Ability No Deficits Noted Safety Awareness Understands Safety Issues Memory Description No Deficits Noted Gross Range of Motion Upper Extremity ROM Assessment Within Functional Limits Impairments hx left total shoulder Lower Extremity ROM Assessment Left Impaired Impairments post-op pain and anterior precautions left hip Strength Upper Extremity Strength Assessment Within Functional Limits Shoulder hx left total shoulder Lower Extremity Strength Assessment Left Impaired Hip pain with left hip active movements Coordination Assessment Gross Coordination Gross Coordination WNL Sensation Assessment Sensation Gross Sensation WNL Muscle Tone Muscle Tone WNL Yes M6 PT-IP Treatment Start: 03/01/22 15:11 Freq: NEEDED Status: Active Protocol: Document 03/03/22 11:28 NB (Rec: 03/03/22 13:34 [facility] [id number]) Physical Therapy Treatment Education Education Provided Precautions,Weight Bearing Status,Post-Op Packet,Safety M7 PT-IP Assessment and Plan Start: 03/01/22 15:11 Freq: NEEDED Status: Active Protocol: Document 03/03/22 11:28 NB (Rec: 03/03/22 13:34 [facility] [id number]) PT Summary Assessment and Plan Potential Rehabilitation Potential Good Status of Condition at Evaluation Evolving Summary Impairments Pain,ROM,Strength,Balance,Bed Mobility,Transfers,Gait, Activity Tolerance Assessment Summary Pt able to relay hip precautions. Pt able to ambulate ~88' today. Hypotension improved with holding position 1-2 min. Pt demonstrated increased independence w/ bed mobility, transfers and gait, and was able to complete 2 steps ascend/descend w/ SPC safely 3 times. Caregiver training w/ aunt scheduled for 1:30p today before discharge to aunt's home. Goals Bed Mobility Goal Independent Transfer Goal Independent,Front Wheeled Walker Gait Goal Independent,Front Wheel Walker Gait Distance 150 feet Other Goals up and down 2 steps with cane and CG/min assist to enter her house Days to Meet Goals 2 Frequency of Treatment Frequency Of Treatment Twice a Day Treatment Plan Physical Therapy Treatment Plan Bed Mobility Training,Transfer Training,Gait Training, Therapeutic Exercise,Balance Retraining,Post Op Education, Discharge Planning,Hot or Cold Pack,Neuromuscular Re-ed Other Recommendations and Next Treatment ambulation, caregiver training Focus , stair training Precautions Anterior Hip Precautions No Hip Extension,No Hip External Rotation Weight Bearing Status Weight Bearing Status Weight Bear as Tolerated Recommendations To Nursing Amount of Assist Needed Standby Assistance Discharge Recommendations PT Discharge Recommendations Home with Assistance Other Discharge Recommendations she plans to stay with her Aunt at discharge Transportation Needs at Discharge Private Vehicle
[2022-03-03] MEDS: OXYCODONE IR 5 MG TABLET PO (11:39)
--- NOTE | 2022-03-03 11:43 | PC.NURSE ---
Addendum entered by Chelsea Mar R.N. 03/03/22 14:23: Pt SL D/C'd intact. PT did some home training w/aunt. Home instructions given w/understanding Pt escorted by staff via W/C to waiting vehicle D/C in stable post op status. Original Note: [employer] post op course. Received D/C orders this morning, Care training at 1330 then D/C home Pt up to chair for short time, worked w/PT Med at 1140 for discomfort after PT anterior aquacell dsg CDI Call light w\in reach, pt calls appropriately for needs. Continue w/plan of care.
[2022-03-03 13:00] VITALS: BP 108/53; PULSE 79; RESP 16; TEMP 37.9; O2SAT 100
--- NOTE | 2022-03-03 13:53 | PT.IPTN ---
Current Diagnoses Acute posthemorrhagic anemia (03/02/22) Unilateral primary osteoarthritis, unspecified hip (03/02/22) Presence of unspecified artificial hip joint (03/02/22) Surgery Performed Operation Date: 03/01/22 07:45 Actual Procedures p Total Hip Arthroplasty/Anterior Approach(Left) - Latrice Paredes MD Physical Therapy Treatment Note M2 PT-IP Current Condition Start: 03/01/22 15:11 Freq: NEEDED Status: Active Protocol: Document 03/01/22 15:12 DLM (Rec: 03/01/22 15:36 DLM [id number]) Physical Therapy Current Condition Current Condition Evaluation Date 03/01/22 Treatment Diagnosis left anterior ANIA, impaired mobility and gait Onset Date 03/01/22 M3 PT-IP Subjective Start: 03/01/22 15:11 Freq: NEEDED Status: Active Protocol: Document 03/03/22 13:53 NBM (Rec: 03/03/22 14:11 NBM [id number]) Subjective Physical Therapy Visit Type Type Treatment Note Visit Start Time 13:40 Visit Stop Time 13:53 Total Visit Minutes 13 Notes Pt reports no dizziness. Number of COMPLIANCE INTERN Visits 3 Physical Therapy Visit Comments Patient Goals Discharge home with family help Therapy Pain Assessment Pain When Pain Assessed During Mobility Pain Present Pain Present Pain Reported Location Left Hip Intensity 4 Scale Used Numeric (0 - 10) Description Aching,Tightness,With Movement Pain Behaviors Wincing Pain Management Techniques Apply Cold,Distraction, Modification of Treatment,Re- positioning,Timing of Activity with Medications M4 PT-IP Mobility and Gait Start: 03/01/22 15:11 Freq: NEEDED Status: Active Protocol: Document 03/03/22 13:53 NBM (Rec: 03/03/22 14:11 NB [id number]) PT-Bed Mobility Assessment Rolling Type of Rolling Roll to Right Level of Assist Independent Supine to Sit Supine to Sit Standby Assistance Sit to Supine Sit to Supine Standby Assistance Scooting Scooting to Edge of Bed Independent Scooting Up and Down in Bed Independent PT-Transfer Assessment Sit to and From Stand Sit to and from Stand Contact Guard Assistance,Use of Upper Extremities Equipment Transfer Assistive Device Gait Belt,Front Wheeled Walker Transfers Transfer Destination Chair,Toilet Transfer Technique Pt ambulated Transfer Ability Level of Assist Contact Guard Assistance,Use of Upper Extremities Comments Mobility Comments Pt in bed upon arrival and agreeable to ambulation for caregiver training w/ aunt present. Pt denies dizziness. Pt sit<>stand w/ FWW CGA w/ no cues for hand placement, step -to gait ~ 5' to w/c. Pt ambulated ~20 ft w/ SPC in RUE appropriately, step-through gait. PT performd 3 steps x 2 up/down w/ SPC no rails safely w/ min cues. Pt returned to room via w/c and used FWW Step Pivot transfer to toilet independently and to chair independently. No increase in baseline pain or dizziness reported. Pt left in bed w/ all needs in reach ready to d/ c to aunt's home. Gait Assessment Gait Gait Assistance Required: Independent,Standby Assistance ,Contact Guard Assist Distance (Feet) 20 Able to Maintain Weight Bearing Status Yes During Gait Assistive Devices Assistive Device Gait Belt,Straight Cane,Front Wheeled Walker Gait Deviations General Gait Pattern Antalgic,Decreased Stride Length,Decreased Feet Clearance,Step-to Gait Factors Limiting Gait Function Factors Limiting Gait Function Decreased Activity Tolerance, Decreased Strength,Limited Range of Motion,Pain,Poor Balance Comments Gait Comments Aunt present for caregiver training. Pt ambulated ~15 ft w/ FWW w/ step to gait and ~20 ft w/ SPC step-through gait w / minimal cues, no increase in baseline symptoms. Pt also completed 3 steps ascending/ descending safely w/ SPC in RUE w/ SBA and recalls hip precautions correctly. Safe to d/c to aunt's home. Stair Climbing Assessment Evaluation Level of Assist On Stairs Independent Devices Stair Climbing Assistive Devices Straight Cane Technique/Endurance Stair Climbing Direction Ascend and Descend Stair Climbing Technique Step Over Step Number of Steps Climbed 3 Stair Climbing Set # Repetitions (reps) 2 Comments Stair Climbing Comments Pt able to ascend/descend steps w/ SPC safely w/ minimal cues. PT-Balance Assessment Sitting Balance and Reactions Static Sitting Balance Ability Normal Dynamic Sitting Balance Ability Normal M5 PT-IP Objective Assessments Start: 03/01/22 15:11 Freq: NEEDED Status: Active Protocol: Document 03/01/22 15:12 DLM (Rec: 03/01/22 15:36 DLM [id number]) Orientation Orientation/Cognition Level of Alertness Alert Orientation Name,Age,Birthday,Month,Date, Year,Day of Week,Place, Situation Language Function Ability No Deficits Noted Safety Awareness Understands Safety Issues Memory Description No Deficits Noted Gross Range of Motion Upper Extremity ROM Assessment Within Functional Limits Impairments hx left total shoulder Lower Extremity ROM Assessment Left Impaired Impairments post-op pain and anterior precautions left hip Strength Upper Extremity Strength Assessment Within Functional Limits Shoulder hx left total shoulder Lower Extremity Strength Assessment Left Impaired Hip pain with left hip active movements Coordination Assessment Gross Coordination Gross Coordination WNL Sensation Assessment Sensation Gross Sensation WNL Muscle Tone Muscle Tone WNL Yes M6 PT-IP Treatment Start: 03/01/22 15:11 Freq: NEEDED Status: Active Protocol: Document 03/03/22 13:53 NBM (Rec: 03/03/22 14:11 [facility] [id number]) Physical Therapy Treatment Education Education Provided Precautions,Weight Bearing Status,Post-Op Packet,Safety M7 PT-IP Assessment and Plan Start: 03/01/22 15:11 Freq: NEEDED Status: Active Protocol: Document 03/03/22 13:53 NBM (Rec: 03/03/22 14:11 [facility] [id number]) PT Summary Assessment and Plan Potential Rehabilitation Potential Good Status of Condition at Evaluation Evolving Summary Impairments Pain,ROM,Strength,Balance,Bed Mobility,Transfers,Gait, Activity Tolerance Assessment Summary Pt able to relay hip precautions. Pt able to ambulate ~35' demonstrating safe use w/ both FWW and SPC and recalls hip precautions. Pt able to complete 3 steps ascending/descending safely w/ min cues. Goals Bed Mobility Goal Independent Transfer Goal Independent,Front Wheeled Walker Gait Goal Independent,Front Wheel Walker Gait Distance 150 feet Other Goals up and down 2 steps with cane and CG/min assist to enter her house Days to Meet Goals 2 Frequency of Treatment Frequency Of Treatment Twice a Day Treatment Plan Physical Therapy Treatment Plan Bed Mobility Training,Transfer Training,Gait Training, Therapeutic Exercise,Balance Retraining,Post Op Education, Discharge Planning,Hot or Cold Pack,Neuromuscular Re-ed Other Recommendations and Next Treatment ambulation, caregiver training Focus , stair training Precautions Anterior Hip Precautions No Hip Extension,No Hip External Rotation Weight Bearing Status Weight Bearing Status Weight Bear as Tolerated Recommendations To Nursing Amount of Assist Needed Standby Assistance Discharge Recommendations PT Discharge Recommendations Home with Assistance Other Discharge Recommendations she plans to stay with her Aunt at discharge Transportation Needs at Discharge Private Vehicle
== END 2022-03-03 14:00 | disposition home or self-care (01) ==
LOC: OR 14:02 → AC 14:02
PROVIDERS: Physician Assistant; Admitting Provider Orthopaedic Surgery; PCP Internal Medicine; Referring Provider Orthopaedic Surgery; Visit Provider Orthopaedic Surgery
PROC: (CPT 27130; principal; 2022-03-01 07:45)
DX: M16.12 Unilateral primary osteoarthritis, left hip (principal); D62 Acute posthemorrhagic anemia; M41.9 Scoliosis, unspecified; F32.A Depression, unspecified; F41.9 Anxiety disorder, unspecified; M54.30 Sciatica, unspecified side; M51.36 Other intervertebral disc degeneration, lumbar region
CPT/HCPCS: 27130; 36415; 73502; 76000; 85014; 85018; 97110; 97116; 97162; 97530; C1776; G0378; C9290; J0171; J0690; J1170; J2250; J2405; J2704; J3010

== ENCOUNTER 2022-12-27 14:21 | Observation (INO) | payer MEDICARE, OTHER, SELFPAY ==
[2022-03-01 13:13] VITALS: BMI 23.9
[2022-12-16 08:18] VITALS: BMI 23.0
[2022-12-27] VITALS (14 sets, daily range): BP systolic 90–120; BP diastolic 42–64; PULSE 60–71; RESP 11–21; TEMP 35.9–36.8; O2SAT 94–100; BMI 23.0
--- NOTE | 2022-12-27 06:00 | DI.RAD.S_ITS ---
PROCEDURE: XR HIP W PEL IF DONE RT 2V INDICATIONS: ANIA TECHNIQUE: AP pelvis and lateral view of the right hip acquired. COMPARISON: [facility], [facility], XR HIP W PEL IF DONE RT 4V, 12/27/2022, 9:15. FINDINGS: Bones: Patient is status post right hip arthroplasty, with hardware components in expected positions. The hip joint appears congruent. The visualized bony structures appear intact. Soft tissues: Overlying postoperative changes are noted. No suspicious soft tissue densities. IMPRESSION: Postop changes from right total hip arthroplasty with anatomic right hip alignment. Dictated by: Oscar Woodruff M.D. on 12/27/2022 at 12:15 Approved by: Oscar Woodruff M.D. on 12/27/2022 at 12:15
[2022-12-27] MEDS: ACETAMINOPHEN 325 MG TABLET 975 MG PO (07:08)
[2022-12-27] MEDS: VANCOMYCIN 1,000 MG/200 ML PIGGYBACK 200 MG IV (07:08)
[2022-12-27] MEDS: LACTATED RINGERS 1,000 ML 42 ML IV ×2 (07:08→11:16)
[2022-12-27] MEDS: CELECOXIB 200 MG CAPSULE PO (07:09)
[2022-12-27 07:19] LABS: COVID19 -Nasal RAPID Negative (Negative)
--- NOTE | 2022-12-27 07:42 | PM.PREOP ---
Pre-operative Note Interval Note History & Physical reviewed/Exam performed by Physician: Yes Changes to H&P: No
--- NOTE | 2022-12-27 07:43 | P.OP_ITS ---
Operative Date/Time/Diagnoses Date of procedure: 12/27/22 Time of procedure: 08:00 Pre-op diagnosis: right hip OA Post-op diagnosis: same Procedure & Clinicians Procedure: right total hip anterior approach Same procedure as scheduled: Yes Indications: The patient has had progressively worsening right hip pain with radiographic changes consistent with arthritis. Non-operative management has failed and the patient has requested total hip replacement. The risks, benefits and alternatives to surgery were discussed with the patient prior to proceeding. Risks discussed included, but were not limited to, failure to relieve pain, leg length discrepancy, dislocation, stiffness, infection, nerve damage, deep venous thrombosis, pulmonary embolism, stroke, coma, heart attack, permanent paralysis and , as well as the potential need for eventual revision of the prosthetic. Surgeon: Latrice Paredes [employer] Designer: Dalia Schneider Click Yes if Unassisted: Yes Anesthesia Type: Spinal Operative Notes Findings: Severe right hip OA, adequate stability, good bone Closure Type: primary Specimen(s): none sent Prosthetic devices, grafts, tissues, transplants, or devices: Paredes and nephew size 3 standard offset anthology, 52 mm R3 cup, neutral poly liner,-3 by 36 Oxinium head Estimated Blood Loss (mL): 250 Blood products transfused: none Procedure in detail: The patient was brought to the operating room. Patient was carefully positioned in the supine position. Time-out was performed and antibiotics were given. Anesthesia was induced. She was positioned in the on the table in order to allow hyperextension of the hip. The right lower extremity was prepped and draped in a standard sterile fashion. An anterior right hip incision was made 1 fingerbreadth lateral to the anterior superior iliac spine and extended distally towards the greater trochanter. Dissection was carried out through skin and subcutaneous tissues. Superficial hemostasis was achieved. The fascia over the tensor fascia sonia was defined and incised with a knife. Two Allis clamps were used to grasp the fascia. Tensor fascia sonia was retracted laterally. A gelpi retractor was placed. Dissection was carried out down along the neck. The circumflex vessels were carefully identified and cauterized with the Aqua Mantis. A PA was used throughout the procedure for critical retraction of the soft tissues in order to allow adequate exposure of the acetabulum and adequate positioning of the femur in order to of decrease the risk for intraoperative fracture. They were also used to assist in adequate visualization to allow hemostasis. There was good visualization of the femoral neck. A Cobra was placed superior to the neck and the gluteus fibers were carefully stripped from that superior aspect of the capsule. A 2nd retractor was placed along the inferior aspect of the neck. The rectus insertion along the capsule was partially released. A 3rd retractor that was then gently placed over the rim of the acetabulum under the rectus. Capsule was carefully incised and released from the intertrochanteric line circumferentially superior to the mid sagittal line and inferiorly to the mid sagittal line until the lesser trochanter was palpable. A tag stitch was placed both in the superior and inferior limb of the capsular insertion. Along the acetabulum capsule was also released up to the mid sagittal 12:00 position. A portion of the labrum was resected. A saw was used to perform an osteotomy at the level of the intertrochanteric line and the junction of the superior femoral neck leaving approximately 1 finger breath of residual inferior neck above the lesser trochanter. A 2nd cut was made along the femoral neck at the base of the head and a napkin ring of neck was removed. Corkscrew was placed in the femoral head and the head was removed without difficulty. Retractors were then repositioned around the acetabulum. Residual labrum was resected and additional osteophytes were remove d. A reamer that was 4 mm below the templated size was placed by hand in the acetabulum and it was reamed to centralize the acetabulum. It was then reamed up to 2 under the templated size and fluoroscopy was brought in to confirm the position of the reaming and depth of reaming. I reamed 1 under the anticipated size. A trial cup was placed and noted that it was appropriately sized and fluoroscopy confirmed position and depth. The component was open and inserted without difficulty fluoroscopic imaging was used to confirm that the cup had been adequately seated and was well positioned. It was further stabilized with a single screw. Neutral poly liner was placed. The cup was tested and noted to be stable. Attention was then directed to the femur. The femur was gently hyperextended additional capsular release was performed as needed in order to allow adequate visualization of the proximal femur with elevation of the femur. Patient was placed in a hyperextended slightly adducted position with maximum external rotation. Box osteotome was used to check for any residual neck as well as sclerotic bone along the trochanter. Western pepper was placed in the femur. Additional broaching was performed. Canal finder was used to determine the alignment of the canal and position. Size 1 broach was placed. The canal was then appropriately broached up to the templated size as long as there was adequate stability of the broach and serial advancement of the broach without excessive impingement. Specific attention was directed at avoiding varus attempting to direct the distal aspect of the broach more anteriorly and avoiding excessive anteversion. Trial reduction showed acceptable range of motion, good stability, no posterior impingement, confucianist of leg length and appropriate lateral shuck. I also hyperflexed the hip and checked that there was no impingement anteriorly and there was good stability with flexion, adduction and internal rotation. Marcaine and Exparel were injected. The stem was placed without difficulty. Repeat trial reduction and x-ray showed acceptable overall position, length, and no evidence of the femoral fracture. Final head was placed. Wound was meti culously irrigated with normal saline. The hip was reduced and additional Exparel and Marcaine were injected. The capsule was closed with interrupted nonabsorbable sutures. The fascia of the tensor was closed with interrupted and running Vicryl. No drain was placed. Any tensor fascia sonia muscle that appeared to be contused or injured which was a minimal amount was carefully resected. An additional anterior fascial suture was also used to close the fascia. Capsule around the tensor was injected with Exparel and Marcaine. The skin was closed with barbed stitches for the subcutaneous tissue and skin. We also used surgical glue. The wound was dressed sterilely. Brief Betadine soak was also used and was meticulously irrigated with normal saline. Patient was transferred to recovery room in satisfactory condition. Complications: none Post-operative Condition: stable Disposition: Acute Care Plan for aftercare: The patient will be maintained on a standard total hip replacement protocol with weight bearing as tolerated and anterior hip precautions. The patient will receive Aspirin and sequential compression devices for DVT prophylaxis. The patient will be discharged home when safe for the home environment.
[2022-12-27] MEDS: CEFAZOLIN 2 GM/100 ML PREMIX 100 ML IV ×3 (08:30→23:58)
--- NOTE | 2022-12-27 08:37 | SUR.OPER ---
Supine on padded [place] table with bilateral legs secured in padded positioning boots and suspended in positioning spars, operative leg in traction per surgeon. Head on one pillow. Arm on non-operative side secured on padded armboard <90 degrees abduction. Arm on operative side padded and resting across chest then secured with tape over sheet. Padded perineal post in place per surgeon.
[2022-12-27] MEDS: BUPIVACAINE LIPOSOME 266 MG/20 ML VIAL INJ (08:40)
[2022-12-27] MEDS: BUPIVACAINE 0.25% (PF) 60 ML, EPINEPHrine 0.3 MG INJ (08:41)
--- NOTE | 2022-12-27 10:19 | DI.RAD.S_ITS ---
PROCEDURE: XR HIP W PEL IF DONE RT 4V INDICATIONS: TOTAL RIGHT HIP REPLACEMENT ANTERIOR APPROACH TECHNIQUE: 4 intraoperative fluoroscopic views of the right hip acquired. COMPARISON: [facility], , XR HIP W PEL IF DONE LT 2V, 03/01/2022, 10:42. FINDINGS: Intraoperative fluoroscopic images shows right total hip arthroplasty in progress. IMPRESSION: Fluoro guidance was provided intraoperatively for right total hip arthroplasty. Dictated by: Oscar Woodruff M.D. on 12/27/2022 at 11:21 Approved by: Oscar Woodruff M.D. on 12/27/2022 at 11:22
--- NOTE | 2022-12-27 11:51 | SUR.PHASEI ---
transferred to room 222 with her belongings bag and walker.
--- NOTE | 2022-12-27 12:02 | PC.NURSE ---
This RN assisting primary nurse to settle patient. Patient brought to room 222 from PACU, oriented to room and call light. VSS. Denies pain. Aquacel to right hip incision is CDI. Patient moving all extremities, calm and cooperative and denies complaint at this time. Call light placed within reach.
[2022-12-27] MEDS: ACETAMINOPHEN 325 MG TABLET 650 MG PO ×3 (13:47→23:58)
[2022-12-27] MEDS: IBUPROFEN 400 MG TABLET PO ×3 (13:48→23:58)
[2022-12-27] MEDS: LACTATED RINGERS 1,000 ML 100 ML IV ×2 (13:53→18:29)
--- NOTE | 2022-12-27 15:02 | PT.IIE ---
Current Diagnoses Unilateral primary osteoarthritis, unspecified hip (12/27/22) Surgery Performed Operation Date: 12/27/22 07:45 Actual Procedures p Total Hip Arthroplasty/Anterior Approach(Right) - Latrice Paredes MD Surgical History (Last Updated 12/16/22 @ 08:26 by Indu Louise, RN) History of arthroplasty of left shoulder (05/02/19) History of orthopedic surgery (10/10/19) History of total left hip replacement (03/01/22) Hx of cholecystectomy Hx of shoulder surgery Hx of tonsillectomy Status post reverse total arthroplasty of left shoulder Medical History (Last Reviewed 03/03/22 @ 07:46 by Luis Chavez PA-C) ADHD Anxiety Arthritis Breast cancer DDD (degenerative disc disease) Depression Hx of ectopic Leg laceration (~01/2019) Osteoarthritis of left glenohumeral joint Sciatica Scoliosis Small intestinal bacterial overgrowth Physical Therapy Inpatient Evaluation/Re-Eval M1 PT/OT-IP Prior Functional Status Start: 12/27/22 14:41 Freq: NEEDED Status: Active Protocol: Document 12/27/22 14:42 ES (Rec: 12/27/22 15:02 ES [id number]) Medical Review Prior Functional Status Medical History Reviewed Yes Diet/Fluid Consistency Regular Communication WFL Mobility and Gait Indep without AD household and community Activities of Daily Living and IADL's Indep Social History Household Members none Living Arrangements House Number of Floors (Floors) One Floor Number of Stairs To Enter/Railing? 0 FELICIA at aunt's home, 2 FELICIA without rails at her own home Home Environment Standard Height Toilet,Walk in Shower Home Equipment Front Wheel Walker,Raised Toilet Seat w/Armrests,Shower Seat without Backrest,[facility] Representative Employment Status Retired Additional Social History Comment Will be staying with her aunt for a few days, then a friend will be staying with her in her own home. M2 PT-IP Current Condition Start: 12/27/22 14:41 Freq: NEEDED Status: Active Protocol: Document 12/27/22 14:42 ES (Rec: 12/27/22 15:02 ES [id number]) Physical Therapy Current Condition Current Condition Evaluation Date 12/27/22 Treatment Diagnosis s/p R ANIA Onset Date 12/27/22 M3 PT-IP Subjective Start: 12/27/22 14:41 Freq: NEEDED Status: Active Protocol: Document 12/27/22 14:42 ES (Rec: 12/27/22 15:02 ES [id number]) Subjective Physical Therapy Visit Type Type Initial Evaluation Visit Start Time 14:07 Visit Stop Time 14:39 Total Visit Minutes 32 Physical Therapy Visit Comments Patient Comments Patient alert in bed, agreeable to work with PT. Reported she had her L hip replaced last February and had to stay in the hospital 3 days due to low BP. Stated that she feels much better this time around. Patient Goals To be able to garden again. Therapy Pain Assessment Pain When Pain Assessed During Mobility Pain Present Pain Present Denied Pain Location Left Hip Intensity 0 Scale Used Numeric (0 - 10) M4 PT-IP Mobility and Gait Start: 12/27/22 14:41 Freq: NEEDED Status: Active Protocol: Document 12/27/22 14:42 ES (Rec: 12/27/22 15:02 ES [id number]) PT-Bed Mobility Assessment Supine to Sit Supine to Sit Independent,Head of Bed Elevated Sit to Supine Sit to Supine Independent,Head of Bed Elevated Scooting Scooting to Edge of Bed Independent Scooting Up and Down in Bed Independent PT-Transfer Assessment Sit to and From Stand Sit to and from Stand Independent Equipment Transfer Assistive Device Gait Belt,Front Wheeled Walker Gait Assessment Gait Gait Assistance Required: Standby Assistance Distance (Feet) 225 Able to Maintain Weight Bearing Status Yes During Gait Assistive Devices Assistive Device Gait Belt,Front Wheeled Walker Gait Deviations General Gait Pattern Within Normal Limits Factors Limiting Gait Function Factors Limiting Gait Function Limited Range of Motion Comments Gait Comments Decreased step length due to decreased R hip extension. Stair Climbing Assessment Comments Stair Climbing Comments Patient declined to attempt stairs this visit but would like to do them before d/c tomorrow morning. Reviewed sequencing with patient this visit. PT-Balance Assessment Sitting Balance and Reactions Static Sitting Balance Ability Normal Dynamic Sitting Balance Ability Normal Standing Balance and Reactions Static Standing Balance Ability Good Dynamic Standing Balance Ability Good Device Used FWW M5 PT-IP Objective Assessments Start: 12/27/22 14:41 Freq: NEEDED Status: Active Protocol: Document 12/27/22 14:42 ES (Rec: 12/27/22 15:02 ES [id number]) Orientation Orientation/Cognition Level of Alertness Alert Orientation Name,Age,Birthday,Month,Date, Year,Day of Week,Place, Situation Language Function Ability No Deficits Noted Safety Awareness Understands Safety Issues Memory Description No Deficits Noted Gross Range of Motion Upper Extremity ROM Assessment Within Functional Limits Lower Extremity ROM Assessment Right Impaired Impairments R hip limitation 2/2 surgery/ precautions Strength Upper Extremity Strength Assessment Within Functional Limits Lower Extremity Strength Assessment Right Impaired Hip Weakness 2/2 surgery, able to lift against gravity Knee WFL Ankle WFL Coordination Assessment Gross Coordination Gross Coordination WNL Sensation Assessment Sensation Gross Sensation WNL Muscle Tone Muscle Tone WNL Yes M6 PT-IP Treatment Start: 12/27/22 14:41 Freq: NEEDED Status: Active Protocol: Document 12/27/22 14:42 ES (Rec: 12/27/22 15:02 ES [id number]) Physical Therapy Treatment Exercises Exercises Ankle Pumps,Gluteal Sets,Quad Sets,Heel Slides Education Education Provided Precautions,Weight Bearing Status,Post-Op Packet,Safety M7 PT-IP Assessment and Plan Start: 12/27/22 14:41 Freq: NEEDED Status: Active Protocol: Document 12/27/22 14:42 ES (Rec: 12/27/22 15:02 ES [id number]) PT Summary Assessment and Plan Potential Rehabilitation Potential Excellent Status of Condition at Evaluation Stable Summary Impairments ROM,Strength,Gait Progress Towards Goals Progressing Toward Goals Assessment Summary Patient is a 72 year old female s/p R ANIA who presents with impaired functional mobility due to the above impairments. She demonstrated independence with bed mobility and transfers with FWW and gait for household distances with FWW with supervision. She declined stairs but do not anticipate difficulty with this though recommend she practice prior to d/c. She demonstrated ANIA exercises without problem. She denied pain throughout treatment. She did c/o mild lightheadedness with standing which improved some with activity. BP was 100 /50's. She is appropriate to d /c home with family/friends after stair training in AM. No equipment needs prior to d/c. Goals Gait Goal Independent Gait Distance 300 Other Goals Able to ascend/descend 2 stairs with LRAD and no rails with SBA. Days to Meet Goals 2 Frequency of Treatment Frequency Of Treatment Twice a Day Treatment Plan Physical Therapy Treatment Plan Transfer Training,Gait Training,Therapeutic Exercise, Post Op Education Precautions Anterior Hip Precautions No Hip Extension,No Hip External Rotation Weight Bearing Status Weight Bearing Status Weight Bear as Tolerated Recommendations To Nursing Amount of Assist Needed Standby Assistance Discharge Recommendations PT Discharge Recommendations Home,Outpatient PT Transportation Needs at Discharge Private Vehicle
[2022-12-27] MEDS: ONDANSETRON 4 MG ODT PO (17:55)
[2022-12-27] MEDS: ASPIRIN EC 81 MG TABLET PO (20:54)
[2022-12-27] MEDS: BUSPIRONE 5 MG TABLET 15 MG PO (20:54)
[2022-12-27] MEDS: DOCUSATE 100 MG CAPSULE PO (20:54)
[2022-12-27] MEDS: diphenhydrAMINE 25 MG TABLET PO (23:58)
[2022-12-28] VITALS: BP 107/54; PULSE 63; RESP 16; TEMP 36.4; O2SAT 96
[2022-12-28 04:00] VITALS: BP 110/47; PULSE 63; RESP 18; TEMP 36.7; O2SAT 98
[2022-12-28] MEDS: IBUPROFEN 400 MG TABLET PO ×4 (04:08→15:45)
[2022-12-28] MEDS: ACETAMINOPHEN 325 MG TABLET 650 MG PO ×2 (04:34→10:46)
[2022-12-28 05:48] LABS: Hemoglobin 9.5 g/dL (12.0-16.0)
--- NOTE | 2022-12-28 07:48 | P.DS_ITS ---
History of Present Illness History of Present Illness Chief complaint: Right Total Hip Arthroplasty/Anterior 12/27 Narrative: Patient is awake and resting comfortably in bed this morning. She states that her pain has been well controlled with medication. She was up with physical therapy yesterday and states that it went well. She would like to go home today. Discharge Providers Provider Date of admission: 12/27/22 14:21 Discharge Date: 12/28/22 Primary care physician: Arabella Quesada MD Consults: 12/27/22 06:00 Consult to Anesthesiology Routine Comment: Consulting Provider: Anesthesiologist Reason for consultation: Regional block for post operative pain control 12/27/22 11:38 Consult to Discharge Planning Routine Comment: Consult to Physical Therapy Evaluate & Treat Comment: Physician Instructions: post op ANIA protocol Discharge provider: Elizabeth Tang PA-C Summary Hospital Course Discharge Diagnosis: Status post right total hip arthroplasty, anterior approach Hospital Course: Operative Date/Time/Diagnoses Date of procedure: 12/27/22 Time of procedure: 08:00 Pre-op diagnosis: right hip OA Post-op diagnosis: same Procedure & Clinicians Procedure: right total hip anterior approach Same procedure as scheduled: Yes Indications: The patient has had progressively worsening right hip pain with radiographic changes consistent with arthritis. Non-operative management has failed and the patient has requested total hip replacement. The risks, benefits and alternatives to surgery were discussed with the patient prior to proceeding. Risks discussed included, but were not limited to, failure to relieve pain, leg length discrepancy, dislocation, stiffness, infection, nerve damage, deep venous thrombosis, pulmonary embolism, stroke, coma, heart attack, permanent paralysis and , as well as the potential need for eventual revision of the prosthetic. Surgeon: Latrice Paredes Cupola Repairer: Dalia Schneider Click Yes if Unassisted: Yes Anesthesia Type: Spinal Operative Notes Findings: Severe right hip OA, adequate stability, good bone Closure Type: primary Specimen(s): none sent Prosthetic devices, grafts, tissues, transplants, or devices: Paredes and nephew size 3 standard offset anthology, 52 mm R3 cup, neutral poly liner,-3 by 36 Oxinium head Estimated Blood Loss (mL): 250 Blood products transfused: none Status at Discharge Cognitive/behavioral status at discharge: oriented Functional status at discharge: uses cane/walker Overall status at discharge: patient is progressing back to baseline Exam Vital Signs (past 8 hours): - 04/19/23 00:00 12/28/22 04:00 Temperature 97.5 F L 98.0 F Pulse Rate 63 63 Respiratory Rate 16 18 Blood Pressure 107/54 L 110/47 L Pulse Oximetry 96 98 Oxygen Flow Rate 0 0 Oxygen Delivery Method Room Air Oxygen Flow Rate 0 Narrative Exam Narrative: Pleasant 72-year-old female. Awake, alert, and oriented. Right anterior hip with intraoperative bandage: clean, dry, and intact. Strength and sensation intact to bilateral lower extremities. Bilateral calf soft, compressible, nontender with no palpable cords or masses. Objective Labs 12/28/22 04:50 Labs: Laboratory Results - last 24 hr 12/28/22 04:50 Hgb 9.5 L Hct 28.0 L PFSH Medical History ADHD Anxiety Arthritis Breast cancer DDD (degenerative disc disease) Depression Hx of ectopic Leg laceration (~01/2019) Osteoarthritis of left glenohumeral joint Sciatica Scoliosis Small intestinal bacterial overgrowth Surgical History History of arthroplasty of left shoulder (05/02/19) History of orthopedic surgery (10/10/19) History of total left hip replacement (03/01/22) Hx of cholecystectomy Hx of shoulder surgery Hx of tonsillectomy Status post reverse total arthroplasty of left shoulder Social History household members: none Smoking Status: Never smoker alcohol intake: current Discharge Assessment & Plan Assessment and Plan Assessment: Patient is progressing as expected after right anterior total hip arthroplasty. Plan of Treatment: Her pain is well managed at this time. She received postoperative medications at her preoperative appointment. She has worked with physical therapy and is cleared to go home at this point. She will continue outpatient physical therapy and follow up with Orthopedics 2 weeks after surgery. Discharge Plan Discharge Plan Patient Disposition: Home Provider Discharge Comment: Discharge when safe and cleared by Physical therapy Discharge orders & Medications Prescriptions: New oxycodone 5 mg tablet 5 mg PO Q4-6H PRN (Reason: pain) Qty: 30 0RF Continued dextroamphetamine-amphetamine [Adderall] 20 mg Tablet 40 mg PO DAILY buspirone 7.5 mg Tablet 15 mg PO BID Adult Multivitamin Gummies 200 mcg Tablet,Chewable 200 tab PO DAILY calcium carbonate-vitamin D2 600 mg calcium- 200 unit Tablet 600 tab PO DAILY acetaminophen 325 mg Tablet 650 mg PO Q6HR Qty: 60 0RF docusate sodium 100 mg Capsule 100 mg PO BID Qty: 20 0RF Discontinued oxycodone 10 mg Tablet 10 mg PO Q3HR PRN (Reason: Pain, Severe (7-10)) Qty: 60 0RF Follow up/Referrals: Arabella Quesada MD [Primary Care Provider] - Elizabeth Tang PA-C [Advanced Station Repairer] - Latrice Paredes MD [Physician] - As previously scheduled Diet/Activity/Treatments Diet: Diet as Tolerated Activity: Weightbearing as tolerated. Maintain anterior hip precautions. Cold/Heat Therapy: Ice to hip as needed Skin/Wound/Dressing Care Report to your healthcare provider any signs of infection, such as:: chills, fever, night sweats, unusual drainage and unusual redness Dressing: Keep dressing clean, dry, and intact until 2 week postoperative visit. If it becomes wet or soiled please call our office for dressing change. Visit Report/Discharge Packet Instructions: DI for Hip Replacement Stand Alone Forms: Patient Portal/API, Stroke Signs & Symptoms, Surgery Discharge Discharge Data Primary Care Provider: Arabella Quesada Attending Provider: Latrice Paredes Admit Date/Time: 12/27/22 14:21
[2022-12-28 07:59] VITALS: BP 96/44; PULSE 60; RESP 16; TEMP 36.6; O2SAT 96
--- NOTE | 2022-12-28 08:06 | CM.DANOTE ---
Initial DCP Assessment Note Pt is a 72 yo female, resident of [place], now POD#1 from : p Total Hip Arthroplasty/Anterior Approach(Right) - Latrice Paredes MD PCP: Arabella Quesada Payer: [facility]/[employer] Reviewed chart, Therapy has cleared pt for return home w/family to assist and pt has planned for home, DC order from Ortho has already been initiated this morning. No barriers identified at this time to patient's safe discharge home w/family to assist; close outpatient f/u recommended. CM team will plan to follow closely in the case any DC needs or concerns arise LUIZA Mora Discharge Planning/Care Management CM Discharge Assessment Start: 12/28/22 08:04 Freq: Status: Active Protocol: Document 12/28/22 08:04 ADITI (Rec: 12/28/22 08:06 ADITI [id number]) Discharge Planning Assessment Assigned Distribution Sales Representative LUIZA Mireles DPOA/Assigned Designee Name Yashira (friend) Esperanza (Aunt), Vianey (Aunt) Contact Information Yashira: [phone] Esperanza: [phone], Vianey: Advance Directives? Yes Advance Directives on File No History Provided By Patient,Medical Record Prior Living Arrangements House Household Members none Type of transporation used prior to Drives own vehicle admit Independent with ADL's Yes Is patient alert and oriented? Yes Patient/Family Preference OP PT Therapy Barriers to Discharge No Discharge Plan Home Transportation Arrangement Family Referrals Initiated None needed Additional Comment At this time
--- NOTE | 2022-12-28 08:40 | PT.IPTN ---
Current Diagnoses Unilateral primary osteoarthritis, unspecified hip (12/27/22) Surgery Performed Operation Date: 12/27/22 07:45 Actual Procedures p Total Hip Arthroplasty/Anterior Approach(Right) - Latrice Paredes MD Physical Therapy Treatment Note M2 PT-IP Current Condition Start: 12/27/22 14:41 Freq: NEEDED Status: Active Protocol: Document 12/27/22 14:42 ES (Rec: 12/27/22 15:02 ES [id number]) Physical Therapy Current Condition Current Condition Evaluation Date 12/27/22 Treatment Diagnosis s/p R ANIA Onset Date 12/27/22 M3 PT-IP Subjective Start: 12/27/22 14:41 Freq: NEEDED Status: Active Protocol: Document 12/28/22 09:04 TS (Rec: 12/28/22 09:18 TS [id number]) Subjective Physical Therapy Visit Type Type Treatment Note Visit Start Time 08:40 Visit Stop Time 08:56 Total Visit Minutes 16 Number of CHEMICAL PRODUCTION ENGINEER Visits 1 Physical Therapy Visit Comments Patient Comments Pt found alert up in chair eating breakfast, reports she' s feeling well, wants to try stairs and trial cane. Patient Goals To be able to garden again. M4 PT-IP Mobility and Gait Start: 12/27/22 14:41 Freq: NEEDED Status: Active Protocol: Document 12/28/22 09:04 TS (Rec: 12/28/22 09:18 TS [id number]) PT-Transfer Assessment Sit to and From Stand Sit to and from Stand Independent Equipment Transfer Assistive Device Gait Belt,Front Wheeled Walker Comments Mobility Comments Pt found resting in chair, agreeable to PT session. Pt performed sit to stand x1 with FWW Ind with BUE support on FWW. Pt ambulated ~300' SBA w/ FWW emerging step thru gait, c /o of dizziness, no signs of buckling or LOB. Pt ambulated ~50' with cane SBA, provided cues for step sequencing. Pt performed stairs x9 SBA with cane in LUE and handrail assist RUE, provided cues for cane and step sequencing. Pt ambulated back to room W/FWW SBA, stand to sit in chair SBA with no AD. Pt was left in bedside chair with call light nearby, ready to d/c home w/ family. Gait Assessment Gait Gait Assistance Required: Standby Assistance Distance (Feet) 300 Able to Maintain Weight Bearing Status Yes During Gait Assistive Devices Assistive Device Gait Belt,Front Wheeled Walker Gait Deviations General Gait Pattern Within Normal Limits Factors Limiting Gait Function Factors Limiting Gait Function Limited Range of Motion Comments Gait Comments See mobility comments. Stair Climbing Assessment Evaluation Level of Assist On Stairs Standby Assistance Devices Stair Climbing Assistive Devices Straight Cane,Right Railing Technique/Endurance Stair Climbing Direction Ascend and Descend Stair Climbing Technique Step to Step Number of Steps Climbed 9 Comments Stair Climbing Comments See mobility comments. PT-Balance Assessment Sitting Balance and Reactions Static Sitting Balance Ability Normal Dynamic Sitting Balance Ability Normal Standing Balance and Reactions Static Standing Balance Ability Good Dynamic Standing Balance Ability Good Device Used FWW M5 PT-IP Objective Assessments Start: 12/27/22 14:41 Freq: NEEDED Status: Active Protocol: Document 12/27/22 14:42 ES (Rec: 12/27/22 15:02 ES [id number]) Orientation Orientation/Cognition Level of Alertness Alert Orientation Name,Age,Birthday,Month,Date, Year,Day of Week,Place, Situation Language Function Ability No Deficits Noted Safety Awareness Understands Safety Issues Memory Description No Deficits Noted Gross Range of Motion Upper Extremity ROM Assessment Within Functional Limits Lower Extremity ROM Assessment Right Impaired Impairments R hip limitation 2/2 surgery/ precautions Strength Upper Extremity Strength Assessment Within Functional Limits Lower Extremity Strength Assessment Right Impaired Hip Weakness 2/2 surgery, able to lift against gravity Knee WFL Ankle WFL Coordination Assessment Gross Coordination Gross Coordination WNL Sensation Assessment Sensation Gross Sensation WNL Muscle Tone Muscle Tone WNL Yes M6 PT-IP Treatment Start: 12/27/22 14:41 Freq: NEEDED Status: Active Protocol: Document 12/28/22 09:04 TS (Rec: 12/28/22 09:18 TS [id number]) Physical Therapy Treatment Education Education Provided Precautions,Weight Bearing Status,Post-Op Packet,Safety M7 PT-IP Assessment and Plan Start: 12/27/22 14:41 Freq: NEEDED Status: Active Protocol: Document 12/28/22 09:04 TS (Rec: 12/28/22 09:18 TS [id number]) PT Summary Assessment and Plan Potential Rehabilitation Potential Excellent Status of Condition at Evaluation Stable Summary Impairments ROM,Strength,Gait Progress Towards Goals Progressing Toward Goals Assessment Summary Pt continues to be Ind with sit to stands in FWW and SBA during ambulation with FWW. Pt ambulated with cane ~50' CGA, provided education on proper sequencing of cane and steps. She progressed her stairs x9 SBA, provided education on use of cane with stairs. PT is recommending home with assist from family. Pt is mobilizing well and is ready to go home. Goals Gait Goal Independent Gait Distance 300 Other Goals Able to ascend/descend 2 stairs with LRAD and no rails with SBA. Days to Meet Goals 2 Frequency of Treatment Frequency Of Treatment Twice a Day Treatment Plan Physical Therapy Treatment Plan Transfer Training,Gait Training,Therapeutic Exercise, Post Op Education Other Recommendations and Next Treatment ambulation, caregiver training Focus , stair training Precautions Anterior Hip Precautions No Hip Extension,No Hip External Rotation Weight Bearing Status Weight Bearing Status Weight Bear as Tolerated Recommendations To Nursing Amount of Assist Needed Standby Assistance Discharge Recommendations PT Discharge Recommendations Home,Outpatient PT Transportation Needs at Discharge Private Vehicle
[2022-12-28] MEDS: CALCIUM CARBONATE 500 MG TAB PO (09:25)
[2022-12-28] MEDS: CHOLECALCIFEROL (VITAMIN D3) 400 UNIT TABLET PO (09:26)
[2022-12-28] MEDS: ASPIRIN EC 81 MG TABLET PO (09:26)
[2022-12-28] MEDS: DOCUSATE 100 MG CAPSULE PO (09:26)
[2022-12-28] MEDS: MULTIVITAMIN 1 TABLET 1 TAB PO (09:26)
[2022-12-28 11:44] VITALS: BP 120/30; PULSE 60; RESP 16; TEMP 36.6; O2SAT 97
== END 2022-12-28 16:12 | disposition home or self-care (01) ==
LOC: OR 15:02 → AC 15:02
PROVIDERS: Admitting Provider Orthopaedic Surgery; PCP Internal Medicine; Referring Provider Orthopaedic Surgery; Visit Provider Orthopaedic Surgery
PROC: (CPT 27130; principal; 2022-12-27 07:45)
DX: M16.11 Unilateral primary osteoarthritis, right hip (principal); Z20.822 Contact with and (suspected) exposure to COVID-19
CPT/HCPCS: 27130; 36415; 73502; 73503; 76000; 85014; 85018; 87635; 97116; 97161; C1776; C9803; G0378; C9290; J0171; J0690; J1100; J2274; J2704; J3010